=== PATIENT | female | born 1945 | race Caucasian/White ===

== ENCOUNTER → 2017-02-02 15:59 | Outpatient (CLI) | payer MEDICARE, BC ==
[2016-01-14 07:12] VITALS: BMI 38.9
[~2017-02-02 15:59] MED LIST: BAYER ASPIRIN325 MG PO; CYCLOBENZAPRINE10 MG PO; FORTAMET500 MG/BOT PO; HYDROCODONE-APA1 TAB PO; HYZAAR 100-25 T1 TAB PO; K-DUR20 MEQ PO; LASIX20 MG PO; LYRICA75 MG PO; NEURONTIN600 MG PO; NORVASC2.5 MG PO; SYNTHROID150 MCG PO; TRIMETHOPRIM100 MG PO; VOLTAREN75 MG PO; XANAX0.5 MG PO
== END | disposition home or self-care (01) ==
LOC: D.MAMMO 09:15
DX: Z12.31 Encounter for screening mammogram for malignant neoplasm of breast (principal)

== ENCOUNTER 2017-07-29 15:06 | Emergency (ER) | payer MEDICARE, BC ==
[2016-01-14 07:12] VITALS: BMI 38.9
[2017-07-29 15:40] LABS: BASOPHILS 0.5 % (0-2); EOSINOPHILS 4.9 % (0-7); HEMATOCRIT 32.7 % (36.0-48.0); IMMATURE GRANULOCYTES 0.3 % (0-5); LYMPHOCYTES 26.6 % (15-50); MCH 23.9 pg (26.0-34.0); MCHC 30.6 g/dL (31.0-37.0); MEAN PLATELET VOLUME 9.5 fL (7.4-10.4); MONOCYTES 5.7 % (2-11); PLATELET COUNT 297 10x3/uL (130-400); RBC 4.19 10x6/uL (4.00-5.40); RDW 16.2 % (11.5-14.5); WBC 6.5 10x3/uL (4.8-10.8)
[2017-07-29 15:57] LABS: ALBUMIN 3.1 g/dL (3.4-5.0); ANION GAP 14.7 mmol/L (8-16); BILIRUBIN - TOTAL 0.22 mg/dL (0.2-1.3); CALCIUM 9.1 mg/dL (8.5-10.1); CARBON DIOXIDE 23.1 mmol/L (21.0-32.0); CREATININE - SERUM 1.2 mg/dL (0.6-1.3); POTASSIUM - SERUM 4.8 mmol/L (3.5-5.1); PROTEIN - SERUM 7.6 g/dL (6.4-8.2)
== END 2017-07-29 18:38 | disposition home or self-care (01) ==
LOC: D.ER 15:06
PROVIDERS: Family Medicine
DX: E86.0 Dehydration (principal); E11.65 Type 2 diabetes mellitus with hyperglycemia

== ENCOUNTER 2017-08-06 18:36 | Emergency (ER) | payer MEDICARE, BC ==
[2016-01-14 07:12] VITALS: BMI 38.9
[2017-08-06 19:08] LABS: BASOPHILS 0.2 % (0-2); EOSINOPHILS 0.3 % (0-7); HEMATOCRIT 36.1 % (36.0-48.0); IMMATURE GRANULOCYTES 0.3 % (0-5); LYMPHOCYTES 7.3 % (15-50); MCH 23.6 pg (26.0-34.0); MCHC 30.5 g/dL (31.0-37.0); MCV 77.3 fL (80.0-100.0); MEAN PLATELET VOLUME 9.4 fL (7.4-10.4); MONOCYTES 4.5 % (2-11); NEUTROPHILS 87.4 % (40-80); PLATELET COUNT 327 10x3/uL (130-400); RBC 4.67 10x6/uL (4.00-5.40); RDW 16.7 % (11.5-14.5); WBC 11.5 10x3/uL (4.8-10.8)
== END 2017-08-06 20:25 | disposition home or self-care (01) ==
LOC: D.ER 18:36
PROVIDERS: Emergency Medicine
DX: T50.905A Adverse effect of unspecified drugs, medicaments and biological substances, initial encounter (principal); Y92.029 Unspecified place in mobile home as the place of occurrence of the external cause; R11.0 Nausea; E11.9 Type 2 diabetes mellitus without complications; I10 Essential (primary) hypertension

== ENCOUNTER 2017-08-07 07:51 | Inpatient (IN) | payer MEDICARE, BC ==
[2017-08-07 08:56] LABS: ALBUMIN 3.1 g/dL (3.4-5.0); ALKALINE PHOSPHATASE 170 U/L (46-116); ALT (SGPT) 15 U/L (10-68); BILIRUBIN - TOTAL 0.52 mg/dL (0.2-1.3); CALC OSMOLALITY 298 mosm/kg (275-300); CALCIUM 8.7 mg/dL (8.5-10.1); CARBON DIOXIDE 22.2 mmol/L (21.0-32.0); CHLORIDE - SERUM 101 mmol/L (98-107); CREATININE - SERUM 1.5 mg/dL (0.6-1.3); POTASSIUM - SERUM 4.4 mmol/L (3.5-5.1); PROTEIN - SERUM 7.4 g/dL (6.4-8.2); SODIUM 137 mmol/L (136-145); UREA NITROGEN 46 mg/dL (7-18); eGFR NON AFRICAN AMERICAN 36 mL/min (90-120)
[2017-08-07 08:57] LABS: GLUCOSE 329 mg/dL (74-106)
[2017-08-07 08:59] LABS: CKMB 0.6 U/L (0.0-3.6); CREATINE KINASE 49 UL (21-215); MAGNESIUM - SERUM 1.2 mg/dL (1.8-2.4)
[2017-08-07 09:02] LABS: TROPONIN-I < 0.017 ng/mL (0.000-0.060)
[2017-08-07 14:23] VITALS: BP 131/59; BMI 36.8
[2017-08-07 15:17] LABS: HEMOGLOBIN 11.2 g/dL (12-16); MCH 23.5 pg (26.0-34.0); MCHC 30.3 g/dL (31.0-37.0); MCV 77.6 fL (80.0-100.0); MEAN PLATELET VOLUME 9.5 fL (7.4-10.4); PLATELET COUNT 278 10x3/uL (130-400); RBC 4.77 10x6/uL (4.00-5.40); RDW 17.3 % (11.5-14.5); WBC 22.9 10x3/uL (4.8-10.8)
[2017-08-07 15:41] LABS: BASOPHILS 3 % (0-2); LYMPHOCYTES 89 % (15-50); MONOCYTES 8 % (2-11); PLATELET ESTIMATE NORMAL
--- NOTE | 2017-08-07 19:31 | NUR ---
PT RESTING QUIETLY WITH EYES CLOSED. DENIES ANY NEEDS AT THIS TIME. CALL LIGHT IN REACH, WILL CONTINUE TO MONITOR.
[2017-08-07 20:00] VITALS: BP 132/57
--- NOTE | 2017-08-07 21:48 | NUR ---
ASSESSMENT COMPLETED AT THIS TIME PER FLOWSHEET. BS 217 4 UNITS HUMULIN R ADMINISTERED. IV LEFT FOREARM PATENT NS @ 100. DENIES ANY OTHER NEEDS AT THIS TIME. CALL LIGHT IN REACH, SRX2 BED LOW. WILL CONTINUE TO MONITOR.
[2017-08-08] VITALS (7 sets, daily range): BP systolic 97–140; BP diastolic 50–66; BMI 36.8
--- NOTE | 2017-08-08 02:00 | NUR ---
ASSISTED PT TO CHAIR X2 ASSIST. STATED THE BED HURTS HER BACK. CALL LIGHT IN REACH.
[2017-08-08 05:41] LABS: ANION GAP 16.4 mmol/L (8-16); CALCIUM 7.5 mg/dL (8.5-10.1); CARBON DIOXIDE 20.8 mmol/L (21.0-32.0); CREATININE - SERUM 1.5 mg/dL (0.6-1.3); POTASSIUM - SERUM 4.2 mmol/L (3.5-5.1)
--- NOTE | 2017-08-08 06:20 | NUR ---
BS 228 4 UNITS HUMULIN R ADMINISTERED PER SS.
--- NOTE | 2017-08-08 07:00 | NUR ---
REPORT RECEIVED FROM AUDIT MANAGER NURSE. CALL LIGHT IN REACH.
--- NOTE | 2017-08-08 07:10 | NUR ---
PLACED PT ON 2L NC DUE TO DESATURATION SP02 OF 84 PT CURRENTLY 93%
--- NOTE | 2017-08-08 07:56 | NUR ---
PATIENT IN BED WITH EYES OPEN AT THIS TIME. NO COMPLAINTS OR SIGNS OF DISTRESS. DENIES ANY NEEDS AT THIS TIME. IV INTACT. CALL LIGHT WITHIN REACH;.
--- NOTE | 2017-08-08 08:34 | NUR ---
ASSESSMENT COMPLETED. ASSISTED TO SIDE OF BED SO SHE CAN EAT. CALL LIGHT IN REACH. WILL CONTINUE WITH PLAN OF CARE.
[2017-08-08 09:11] LABS: BASOPHILS 0.1 % (0-2); EOSINOPHILS 0.4 % (0-7); HEMATOCRIT 37.2 % (36.0-48.0); HEMOGLOBIN 11.4 g/dL (12-16); IMMATURE GRANULOCYTES 0.5 % (0-5); LYMPHOCYTES 6.3 % (15-50); MCH 23.8 pg (26.0-34.0); MCHC 30.6 g/dL (31.0-37.0); MCV 77.5 fL (80.0-100.0); MEAN PLATELET VOLUME 10.7 fL (7.4-10.4); NEUTROPHILS 84.7 % (40-80); PLATELET COUNT 341 10x3/uL (130-400); RDW 17.3 % (11.5-14.5); WBC 25.6 10x3/uL (4.8-10.8)
--- NOTE | 2017-08-08 10:08 | NUR ---
FERROUS SULFATE PO. RADIOLOGY WAITING TO DO XRAY.
[2017-08-08] MEDS ORDERED: HYDROCODONE-APA1 TAB PO (10:32)
--- NOTE | 2017-08-08 10:34 | NUR ---
WOUND CARE NURSE STATED PATIENT IS HURTING D/T BILATERAL LOWER EXTREMITIES DRSG CHANGES. SPOKE WITH PATIENT AND SHE IS WANTING HER HOME MED OF NROCO WHICH WAS NOT ON HER MED LIST. WILL SPEAK WITH VEDA BUTCHER.
--- NOTE | 2017-08-08 10:45 | NUR ---
Wound care consult: Pt has numerous chronic open wounds on bilateral lower extremities. She is a pt at the [facility] wound clinic and sees Dr. Navarro. Home health comes to home for dressing changes daily. Right lateral calf: 2.3cm x 2.5cm x 0.3cm Wound bed is pale pink with stringy yellow slough. There is a small amount of serous drainage noted without odor. Left medial doshi: 2.5cm x 6cm x 0.2cm Pale pink wound bed with stringy yellow slough. Small serous drainage without odor. Left upper doshi: 3.5cm x 1.5cm x 0.1cm Pale pink wound bed with stringy yellow slough. Small serous drainage without odor. Left lower doshi: 2.5cm x 3cm x 0.2cm Pale pink wound bed with stringy yellow slough. Drainage is small and serous without odor. Left lateral doshi: 5.5cm x 2cm x 0.2cm Stringy yellow slough coveres a pale pink wound bed. There is a small amount of serous drainage and no odor. Left dorsal foot: 2.5cm x 2.5cm x 0.5cm pale pink wound bed. Small amount of serous drainage with no odor. Pt states that she gets these wounds frequently. Starting with blisters and turning into wounds. Bilateral lower extremities are very edematous at this time. She also complains of extreme tenderness at wound sites. Currernt treatment being used by /[facility] wound clinic is Medihoney to wounds on lower legs and Dakin's 1/4 strength solution to wound on left foot (loosely packed with 1/4" plain packing strip. All are covered with Adaptic, 4x4s, wrapped with cast padding, kerlix and secured with stocking. They are changed daily. I recommend continuing with the above wound care treatment. Will continue to monitor.
--- NOTE | 2017-08-08 11:22 | NUR ---
MORPHINE 2 MG SIVP PER C/O PAIN OF 8. PLEXI-PULSES BOOTS WERE PLACED BY MARKIE @ 1115. I ALSO PUT HEART MONITOR ON, HR [address] CALDERON IN ROOM TO EXAMINE PATIENT AT THIS TIME.
--- NOTE | 2017-08-08 11:39 | NUR ---
PLEXI PULSE BOOTS ON
[2017-08-08 11:54] LABS: CKMB 0.1 U/L (0.0-3.6); CREATINE KINASE 34 UL (21-215); PRO BNP 427 pg/mL (0-125)
[2017-08-08 11:55] LABS: TROPONIN-I < 0.017 ng/mL (0.000-0.060)
--- NOTE | 2017-08-08 13:14 | NUR ---
ASSISTED TO BSC. CLEAN CATCH URINE OBTAINED. SENT TO LAB.
--- NOTE | 2017-08-08 14:05 | NUR ---
IV LEVAQUIN INITIATED SINCE ALL SPECIMENS HAVE BEEN COLLECTED.
[2017-08-08 14:20] LABS: APPEARANCE HAZY (CLEAR); BILIRUBIN NEGATIVE (NEGATIVE); COLOR YELLOW (YELLOW); KETONE NEGATIVE (NEGATIVE); NITRITE NEGATIVE (NEGATIVE); PROTEIN NEGATIVE (NEGATIVE); UROBILINOGEN NORMAL (NORMAL)
[2017-08-08 14:21] LABS: BACTERIA MANY /hpf (NONE SEEN); GLUCOSE 100 mg/dL (NEGATIVE); MUCUS <1+ /lpf (NONE SEEN); RED CELLS - URINE 0-5 /hpf (0-5); WHITE CELLS - URINE >50 /hpf (0-5)
--- NOTE | 2017-08-08 15:07 | NUR ---
C/O PAIN OF 7. MORPHINE 2 MG SIVP. DAUGHTER AND GRANDSON AT BEDSIDE. CALL LIGHT IN REACH.
--- NOTE | 2017-08-08 17:24 | NUR ---
8 UNITS OF INSULIN FOR BS OF 234. CALL LIGHT IN REACH.
--- NOTE | 2017-08-08 18:43 | NUR ---
2 MG MORPHINE SIVP PER C/O PAIN OF 8. NO OTHER CHANGES IN INITIAL ASSESSMENT. CALL LIGHT IN REACH. PLEXI-PULSES TO BLE. BED ALARM ON. VISITOR IN ROOM. CALL LIGHT IN REACH. WILL CONTINUE WITH PLAN OF CARE.
--- NOTE | 2017-08-08 19:25 | NUR ---
RECEIVED REPORT, ASSUMED CARE OF PT. REPORTS PAIN 8/10 IN BACK. PLEXI PULSE PADS IN USE. IV LEFT FOREARM NS @ 100. BED ALARM ON, ENCOURAGED PT TO USE CALL LIGHT FOR ASSISSTANCE. BED IN LOWEST POSITION. PT DENIES ANY OTHER NEEDS AT THIS TIME. WILL CONTINUE TO MONITOR.
[2017-08-08 19:33] LABS: CREATINE KINASE 32 UL (21-215)
[2017-08-08 19:48] LABS: TROPONIN-I 0.078 ng/mL (0.000-0.060)
--- NOTE | 2017-08-08 21:20 | NUR ---
BS 171 4 UNITS HUMULIN R ADMINISTERED AT THIS TIME PER SS.
[2017-08-09 00:10] LABS: CREATINE KINASE 62 UL (21-215)
[2017-08-09 00:12] LABS: TROPONIN-I 0.086 ng/mL (0.000-0.060)
--- NOTE | 2017-08-09 01:34 | NUR ---
PRN MORPHINE ADMINISTERED AT THIS TIME FOR PAIN 05/19. PT STATES THE PAIN IS COMING FROM HER LEGS, STATES "THEY HAVE NEVER HURT THIS BAD BEFORE." CALL LIGHT IN REACH.
[2017-08-09 04:00] VITALS: BP 103/57
[2017-08-09 05:39] LABS: BASOPHILS 0.1 % (0-2); EOSINOPHILS 0.8 % (0-7); HEMATOCRIT 31.3 % (36.0-48.0); HEMOGLOBIN 9.6 g/dL (12-16); IMMATURE GRANULOCYTES 0.3 % (0-5); LYMPHOCYTES 8.1 % (15-50); MCH 23.6 pg (26.0-34.0); MCHC 30.7 g/dL (31.0-37.0); MCV 77.1 fL (80.0-100.0); MEAN PLATELET VOLUME 9.4 fL (7.4-10.4); MONOCYTES 9.2 % (2-11); NEUTROPHILS 81.5 % (40-80); RBC 4.06 10x6/uL (4.00-5.40); RDW 17.2 % (11.5-14.5)
[2017-08-09 05:42] LABS: PLATELET COUNT 213 10x3/uL (130-400); WBC 18.5 10x3/uL (4.8-10.8)
[2017-08-09 05:57] LABS: ANION GAP 15.4 mmol/L (8-16); BILIRUBIN - TOTAL 0.56 mg/dL (0.2-1.3); CALCIUM 7.6 mg/dL (8.5-10.1); CARBON DIOXIDE 19.2 mmol/L (21.0-32.0); CREATININE - SERUM 1.3 mg/dL (0.6-1.3); POTASSIUM - SERUM 3.6 mmol/L (3.5-5.1)
[2017-08-09 05:58] LABS: ALBUMIN 1.9 g/dL (3.4-5.0); PROTEIN - SERUM 5.2 g/dL (6.4-8.2)
--- NOTE | 2017-08-09 07:50 | NUR ---
REPORT RECEIVED FROM SUPERVISOR POWDER AND PRIMER CANNING NURSE. CALL LIGHT IN REACH.
--- NOTE | 2017-08-09 08:00 | NUR ---
ASSESSMENT COMPLETED. PLEXI-PULSES APPLIED BACK TO BLE. BED ALARM CUT ON. CALL LIGHT IN REACH. WILL CONTINUE WITH PLAN OF CARE.
[2017-08-09 09:05] VITALS: BP 82/47
--- NOTE | 2017-08-09 10:30 | NUR ---
AM MEDS ADMINISTERED. NS 500 CC IV BOLUS INITIATED. [place] HAT PLACED IN BR FOR MEASUREMENT OF URINE AND ALSO FOR STOOL SAMPLE TO SEND TO LAB. SPECIMEN CUP AND HAZARDOUS BAG PLACED ON DOOR TO COLLECT STOOL SAMPLE FOR OCCULT BLOOD. WANTS TO WAIT RIGHT BEFORE DRESSING CHANGES TO GET MORPHINE. AT BEDSIDE. CALL LIGHT IN REACH.
--- NOTE | 2017-08-09 10:30 | NUR ---
AM MEDS ADMINISTERED. NS 500 CC IV BOLUS INITIATED. [place] HAT PLACED IN BR FOR MEASUREMENT OF URINE AND ALSO FOR STOOL SAMPLE TO SEND TO LAB. SPECIMEN CUP AND HAZARDOUS BAG PLACED ON DOOR TO COLLECT STOOL SAMPLE FOR OCCULT BLOOD. AT BEDSIDE. CALL LIGHT IN REACH.
[2017-08-09 11:35] VITALS: BP 106/58
--- NOTE | 2017-08-09 11:38 | NUR ---
BOLUS COMPLETED. IV TO LEFT FOREARM WITH SWELLING AND REDNESS. DC'D WITH TIP INTACT. RESITED TO RIGHT HAND WITH 22 GA X1 STICK. FSBS 256. REGULAR INSULIN 10 UNITS SUBQ TO RLQ ABD. FAMILY IN ROOM. CALL LIGHT IN REACH.
--- NOTE | 2017-08-09 15:29 | NUR ---
PATRICK CALVO PO. MORPHINE IVPB. CALL LIGHT IN REACH.
[2017-08-09 16:12] VITALS: BP 123/58
--- NOTE | 2017-08-09 16:15 | NUR ---
DRSGs TO BLE CHANGED PER ORDER.
--- NOTE | 2017-08-09 16:42 | EC ---
PATIENT:TAMIKA MERINO DATE OF SERVICE: 08/08/17 SEX: F MEDICAL RECORD: [id number] DATE OF : [birth year] LOCATION:D.MS [id number] AGE OF PATIENT: 72 ADMISSION DATE: 08/08/17 REFERRING PHYSICIAN: INTERPRETING PHYSICIAN: RAJI ROSEN MD ECHOCARDIOGRAM REPORT ECHO CHARGES 4 ECHO COMPLETE CLINICAL DIAGNOSIS: CP/SOB ECHOCARDIOGRAPHIC MEASUREMENTS (adult normal given) AC root (d.<3.7cm) 3.4 cm LV Septum d (<1.2 cm> 1.8 cm Valve Excursion 1.2 cm LV Septum (systole) 2.5 cm Left Atria (s.<4.0cm> 3.9 cm LVPW d(<1.2cm) 1.7 cm RV (d.<2.3cm) 2.4 cm LVPW (sytole) 2.5 cm LV diastole(<5.6CM) 5.6 cm MV E-F(>70mm/sec) cm LV systole 2.5 cm LVOT Diameter 1.8 cm MV exc.(>10mm) cm Est.ejection fraction (50-75%) % Pericardial Effusion N DOPPLER: LVIT cm/sec A 74.0 cm/sec E 60.0 cm/sec LA cm/sec RVSP 78.0 mmHg LVOT 194 cm/sec AOP1/2T m/s Asc. 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 Rosen TAPE# PACS DATE OF SERVICE: 08/08/2017 Echocardiogram FINDINGS: 1. Left ventricular chamber size is upper limits of normal, left ventricular systolic function is mildly depressed. Overall ejection fraction 40% to 45%. 2. Left atrium is within normal limits at 3.9 cm. Right atrium and right ventricular chamber sizes are mildly dilated. 3. Valvular structures: Aortic valve demonstrates mild calcific aortic ECHOCARDIOGRAM REPORT [id number] TAMIKA MERINO stenosis. There is a gradient of 25 mm across the valve. The valve area calculates 1.9 cm-squared. The remaining valvular structures have normal structure and motion. 4. Doppler interrogation reveals [id number] mitral regurgitation, mild tricuspid regurgitation, no other valvular insufficiency or stenosis. Pulmonary systolic pressure; however, is markedly elevated estimated at 78 mmHg. 5. No evidence of pericardial effusion or left ventricular thrombus. TRANSINT:[id number] Voice Confirmation ID: [id number] DOCUMENT ID: [id number] RAJI ROSEN MD at 1642 CC: [id number] DICTATION DATE: 08/09/17 1022 SYSTEMS TEST ENGINEER: 08/09/17 1128 ADM IN [facility] [address] [place] [address]
--- NOTE | 2017-08-09 16:42 | CN ---
PATIENT NAME:TAMIKA MERINO MEDICAL RECORD: [id number] : 47 LOCATION:D D.[id number] ADMIT DATE: 08/08/17 ACCOUNT: [id number] CONSULTING PHYSICIAN: RAJI CALDERON MD REFERRING PHYSICIAN: ANNA BAZAN MD DATE OF CONSULTATION: 08/08/2017 ADMITTING DIAGNOSES: 1. Chest pain. 2. Elevated WBC count. 3. Febrile illness. HISTORY OF PRESENT ILLNESS: Ms. Merino presents with chest pain since last in a worsening fashion. She as well has been febrile. She has had a cough. She has had nausea, no vomiting, but her chest pain does persist. She has sinus tachycardia on her EKG, but no ST-T changes. She has no history of ischemic heart disease. Troponin is normal. She is tachycardic to the 110 range, sinus tachycardia. Her blood pressure is low, around 100 systolic. White blood cell count is elevated at 25.6. PHYSICAL EXAMINATION: GENERAL APPEARANCE: Well-nourished, well-developed, appears stated age. Level of distress, comfortable. PSYCHIATRIC: Mental status, alert, normal affect. Orientation, oriented to time, place and person. EYES: Lids and conjunctiva, noninjected. No discharge, no pallor. ENT: Lips, teeth, gums, normal dentition. Oropharynx, no cyanosis, no pallor. NECK: Carotid arteries, bilateral normal upstroke, no bruits, no thrills. JUGULAR VEINS: No jugular venous pressure or distention. CERVICAL LYMPH NODES: Nontender, nonenlarged. THYROID: Not enlarged. Nontender. No nodules. LUNGS: Respiratory effort, unlabored. CHEST: Normal curvature. No thoracic deformity. No chest wall tenderness. Percussion, resonant. Auscultation, clear. No wheezes, no rales, no rhonchi. CARDIOVASCULAR: Precordial exam, nondisplaced. No heaves or pericardial thrills. Rate and rhythm, regular. Heart sounds, normal S1, normal S2. No S3, no gallop, no rub. Systolic murmur, not heard. Diastolic murmur, not heard. EXTREMITIES: No cyanosis, no edema. Peripheral pulses, full and equal in all extremities, except as noted. No bruits appreciated. ABDOMEN: Soft, nondistended. Normal aorta. No bruit. Nontender. No masses. Liver, nontender, no hepatomegaly. Spleen, nontender, no splenomegaly. MUSCULOSKELETAL: No joint tenderness. No joint swelling. No erythema. NEUROLOGICAL: Normal gait, normal strength, normal tone. SKIN: Warm and dry. REVIEW OF SYSTEMS: The patient reports easy bruising but reports no swollen glands. The patient reports no fever, no night sweats, no significant weight gain, no significant weight loss. No significant exercise tolerance. The patient reports no dry eyes, no irritation, no vision change. Patient reports no difficulty hearing and no ear pain. Patient reports no frequent nose bleeds or nose and sinus problems. Patient reports on arm pain on exertion. No shortness of breath while lying down. No history of heart murmur. Patient reports no cough, no wheezing or coughing up blood. Patient reports no abdominal pain, no vomiting. Normal appetite. No diarrhea and not vomiting blood. No nausea and no constipation. Patient reports no incontinence. No CONSULT REPORT [id number] TAMIKA MERINO difficulty urinating. No hematuria. No increased frequency. Patient reports no muscle aches. No weakness, no arthralgias, no back pain. No swelling of the extremities. Patient reports no abnormal mole, no jaundice, no rashes. Reports no loss of consciousness. No weakness and no numbness. No seizures, dizziness, or headaches. The patient reports no depression, no sleep disturbance, feeling safe in a relationship and no alcohol abuse. Patient reports on fatigue. Reports no runny nose or sinus pressure. No itching, no hives, and no frequent sneezing. OVERALL IMPRESSION: Chest pain of unknown etiology, doubt cardiac most likely secondary to a febrile illness and/or pneumonia. She is undergoing workup for that at this time as well. I would not proceed with coronary angiography at this time. Despite a negative workup or treatment of the febrile illness if the chest pain persists, then would consider cardiac workup. TRANSINT:[id number] Voice Confirmation ID: [id number] DOCUMENT ID: [id number] RAJI CALDERON MD at 1642 CC: [id number] DICTATION DATE: 08/08/17 1144 MID WIFE: 08/08/17 1231 ADM IN [facility] [id number] [place] [id number]
--- NOTE | 2017-08-09 18:45 | NUR ---
ANOTHER 2 MG MORPHINE SIVP. NO OTHER CHANGES IN INITIAL ASSESSMENT. PLEXI-PULSES TO BLE. BED ALARM ON. CALL LIGHT IN REACH. WILL CONTINUE WITH PLAN OF CARE.
--- NOTE | 2017-08-09 21:04 | NUR ---
AWAKE,ALERT.WATCHING TV. NO COMPLAINTS AT PRESENT. IV INFUSING TO RIGHT THUMB WIHTOUT REDNESS OR EDEMA NOTED. O2 @ 3L PER NC ON. NO DISTRESS NOTED. CL IN REACH.
[2017-08-09 21:30] VITALS: BP 125/63
[2017-08-10] VITALS (7 sets, daily range): BP systolic 121–154; BP diastolic 47–92
--- NOTE | 2017-08-10 01:12 | NUR ---
RESTING QUIELTY. RESP EVEN AND UNLORED.CL IN REACH.
--- NOTE | 2017-08-10 02:00 | NUR ---
ASSISTED PATIENT TO THE BEDSIDE COMMODE. PATIENT IS VERY WEAK, REQUIRED A LOT OF ASSISTANCE. PATIENT'S NURSE, LISA, ASSISTED PATIENT BACK TO BED.
[2017-08-10 05:11] LABS: BASOPHILS 0.2 % (0-2); EOSINOPHILS 2.6 % (0-7); HEMATOCRIT 29.7 % (36.0-48.0); HEMOGLOBIN 9.2 g/dL (12-16); IMMATURE GRANULOCYTES 0.6 % (0-5); LYMPHOCYTES 8.5 % (15-50); MCH 23.7 pg (26.0-34.0); MCV 76.5 fL (80.0-100.0); MEAN PLATELET VOLUME 10.1 fL (7.4-10.4); MONOCYTES 12.2 % (2-11); NEUTROPHILS 75.9 % (40-80); PLATELET COUNT 218 10x3/uL (130-400); RBC 3.88 10x6/uL (4.00-5.40); RDW 17.3 % (11.5-14.5); WBC 14.5 10x3/uL (4.8-10.8)
[2017-08-10 05:41] LABS: ALBUMIN 2.1 g/dL (3.4-5.0); ANION GAP 16.5 mmol/L (8-16); BILIRUBIN - TOTAL 0.43 mg/dL (0.2-1.3); CALCIUM 7.8 mg/dL (8.5-10.1); CARBON DIOXIDE 18.2 mmol/L (21.0-32.0); POTASSIUM - SERUM 3.7 mmol/L (3.5-5.1); PROTEIN - SERUM 5.3 g/dL (6.4-8.2)
[2017-08-10 05:42] LABS: CREATININE - SERUM 0.9 mg/dL (0.6-1.3)
--- NOTE | 2017-08-10 06:21 | NUR ---
AWAKE WITH NO COMPLAINTS. CL IN REACH.
--- NOTE | 2017-08-10 07:35 | NUR ---
PT AOX4 RESP EVEN AND NONLABORED PT DENIES NEEDS AT THIS TIME IV TO RIGHT THUMB PATENT AND INTACT AT THIS TIME SRX2 BED AT LOWEST SETTING CALL LIGHT WITHIN REACH WILL CONTINUE TO MONITOR
--- NOTE | 2017-08-10 07:44 | NUR ---
Patient Name: TAMIKA MERINO Admission Status: ER Accout number: [id number] Admission Date: 08-08-2017 : 1945 Admission Diagnosis: Attending: ANNA BAZAN Current LOS: 2 Anticipated DC Date: 08-12-2017 Planned Disposition: Home Primary Insurance: MEDICARE A & B Discharge Planning Comments: CM MET WITH PATIENT REGARDING D/C NEEDS AND PLANS. PATIENT STATED SHE LIVES WITH HER FRIEND (RASHID SHUKLA) AND HE WILL DRIVE HER HOME AT DISCHARGE. PATIENT STATED SHE HAS A RAMP TO ENTER HOME AND NO STAIRS INSIDE. PATIENTS PCP IS THE [facility] AND SHE SEES LUCRECIA MURRAY. PATIENTS PHARMACY IS [facility]. PATIENT IS CURRENT WITH [facility]. CM WILL CONTINUE TO FOLLOW PATIENT WITH D/C NEEDS AND PLANS. PCP [facility]A [facility] (SEES VEDA MURRAY) [facility]- [phone] RASHID SHUKLA (FRIEND AND ROOMMATE) [phone] Manufacturing Advisor: Yuridia Cuevas Is the patient Alert and Oriented? Yes 0 * How many steps to enter\exit or inside your home? RAMP 0 * PCP [facility] MURRAY APN ([facility]) 0 * Pharmacy [facility] 0 * Preadmission Environment Home with Family 0 * ADLs Independent 0 * Equipment Glucometer Shower Chair Walker 0 * List name and contact numbers for known caregivers / representatives who currently or will assist patient after discharge: RASHID SHUKLA (FRIEND AND ROOMMATE) [phone] 0 * Community resources currently utilized Home Health 0 * Please name any agencies selected above. [facility] 0 * Additional services required to return to the preadmission environment? Yes 0 * Can the patient safely return to the preadmission environment? Yes 0 * Has this patient been hospitalized within the prior 30 days at any hospital? No 0 Grand Total: 0
--- NOTE | 2017-08-10 12:50 | NUR ---
NUTRITION F/U PT VISIT. PT TOLERATING ADA DIET, REPORTS IMPROVING PO INTAKE. CURRENTLY ~ 50% INTAKE RECENT MEALS. WILL CONTINUE TO PROVIDE DIET, MONITOR INTAKE. RD FOLLOWING
--- NOTE | 2017-08-10 19:30 | NUR ---
PT ALERT AND ORIENTED. STATES PAIN 04/18. IV RIGHT THUMB NS @ 100. PT C/O IV POSITION, REQUESTED IF IT COULD BE MOVED BECAUSE THE PUMP HAD WENT OFF ALL DAY. WILL ATTEMPT NEW IV SITE. CALL LIGHT IN REACH.
--- NOTE | 2017-08-10 20:55 | NUR ---
PRN MORPHINE ADMINISTERED AT THIS TIME FOR PAIN.
--- NOTE | 2017-08-10 21:06 | NUR ---
BS 166 ADMINISTERED 4 UNITS HUMULIN R PER SS.
[2017-08-11] VITALS (8 sets, daily range): BP systolic 107–179; BP diastolic 50–81
[2017-08-11 05:12] LABS: BASOPHILS 0.2 % (0-2); HEMATOCRIT 30.7 % (36.0-48.0); HEMOGLOBIN 9.5 g/dL (12-16); IMMATURE GRANULOCYTES 0.5 % (0-5); LYMPHOCYTES 11.9 % (15-50); MCH 23.5 pg (26.0-34.0); MCHC 30.9 g/dL (31.0-37.0); MEAN PLATELET VOLUME 10.5 fL (7.4-10.4); MONOCYTES 11.7 % (2-11); NEUTROPHILS 72.7 % (40-80); RBC 4.04 10x6/uL (4.00-5.40); RDW 17.2 % (11.5-14.5); WBC 12.9 10x3/uL (4.8-10.8)
[2017-08-11 05:38] LABS: PLATELET COUNT 264 10x3/uL (130-400)
--- NOTE | 2017-08-11 05:45 | NUR ---
IV IN RIGHT THUMB INFILTRATED, DC'D WITH CATH TIP INTACT. 22G RESITED IN LEFT WRIST PER VIVIANE MELO.
[2017-08-11 05:57] LABS: ALBUMIN 2.2 g/dL (3.4-5.0); ALKALINE PHOSPHATASE 153 U/L (46-116); ALT (SGPT) 16 U/L (10-68); BILIRUBIN - TOTAL 0.35 mg/dL (0.2-1.3); CALC OSMOLALITY 279 mosm/kg (275-300); CALCIUM 7.4 mg/dL (8.5-10.1); CARBON DIOXIDE 17.8 mmol/L (21.0-32.0); CHLORIDE - SERUM 104 mmol/L (98-107); CREATININE - SERUM 0.8 mg/dL (0.6-1.3); GLUCOSE 179 mg/dL (74-106); POTASSIUM - SERUM 3.5 mmol/L (3.5-5.1); PROTEIN - SERUM 5.7 g/dL (6.4-8.2); SODIUM 137 mmol/L (136-145); eGFR NON AFRICAN AMERICAN 75 mL/min (90-120)
[2017-08-11 06:03] LABS: UREA NITROGEN 19 mg/dL (7-18)
--- NOTE | 2017-08-11 06:15 | NUR ---
PRN MORPHINE ADMINISTERED AT THIS TIME FOR PAIN 05/19
--- NOTE | 2017-08-11 07:30 | NUR ---
ASSESSMENT PER FLOW SHEET.PT WITHOUT DISTRESS.REDNESS NOTED TO ABDOMINAL FOLDS AND GROINS. DRESSINGS TO BLE IN PLACE.PT STATES SHE HAS HAD ULCERS FOR [address] F[address] PRVENTION IN PLACE.
--- NOTE | 2017-08-11 11:49 | NUR ---
IV RED AND LEAKING AFTER SHOWER.IV DC FROM LEFT FOREARM WITH CATH TIP INTACT.IV RESITED TO LEFT HAND X1 STICK USING ASEPTIC TECH 22G. PT TOLERATED WELL
--- NOTE | 2017-08-11 15:44 | NUR ---
Rehab Note- Acute Rehab Prescreen order received. The patient has not been seen by Physical therapy since 08/08. Spoke with APOLINAR Shi. Will follow at this time to see the patient's functional mobility. Thank you for this referral! Nena Chin RN Clinical Liaison, [facility] Rehab
--- NOTE | 2017-08-11 18:13 | NUR ---
REMAINS WITHOUT NEEDS,WITHOUT CHANGE FROM INITIAL ASSESSMENT.CONT PLAN OF CARE
--- NOTE | 2017-08-11 19:00 | NUR ---
REPORT RECEIVED AND CARE OF PT ASSUMED. PT SITTING UP IN BED WATCHING TV. IV IN LEFT WRIST SALINE LOCKED. TELEMETRY IN PLACE AND READING 114 ST AT THIS ASSESSMENT. WILL MONITOR CLOSELY FOR NEEDS.
--- NOTE | 2017-08-11 20:47 | NUR ---
HS MEDICATIONS GIVEN. FSBS 202 THIS CHECK REQUIRING COVERAGE WITH 8 UNITS OF REGULAR INSULIN. WILL CONTINUE TO MONITOR FOR NEEDS.
--- NOTE | 2017-08-11 23:35 | NUR ---
ASSISTED PT UP TO USE BSC TO VOIDE.POSITONED BACK IN BED FOR COMFORT. WILL CONTINUE TO MONITOR FOR NEEDS.
[2017-08-12] VITALS: BP 128/62
[2017-08-12 04:00] VITALS: BP 148/73
[2017-08-12 05:19] LABS: BASOPHILS 0.1 % (0-2); EOSINOPHILS 3.4 % (0-7); HEMATOCRIT 27.1 % (36.0-48.0); HEMOGLOBIN 8.4 g/dL (12-16); IMMATURE GRANULOCYTES 0.7 % (0-5); LYMPHOCYTES 15.4 % (15-50); MCH 23.5 pg (26.0-34.0); MCV 75.9 fL (80.0-100.0); MEAN PLATELET VOLUME 10.1 fL (7.4-10.4); MONOCYTES 12.3 % (2-11); NEUTROPHILS 68.1 % (40-80); PLATELET COUNT 232 10x3/uL (130-400); RBC 3.57 10x6/uL (4.00-5.40); RDW 17.1 % (11.5-14.5); WBC 10.5 10x3/uL (4.8-10.8)
[2017-08-12 05:37] LABS: ALBUMIN 1.9 g/dL (3.4-5.0); ALKALINE PHOSPHATASE 134 U/L (46-116); ALT (SGPT) 17 U/L (10-68); BILIRUBIN - TOTAL 0.31 mg/dL (0.2-1.3); CALC OSMOLALITY 279 mosm/kg (275-300); CALCIUM 7.9 mg/dL (8.5-10.1); CARBON DIOXIDE 21.5 mmol/L (21.0-32.0); CHLORIDE - SERUM 107 mmol/L (98-107); CREATININE - SERUM 0.7 mg/dL (0.6-1.3); GLUCOSE 210 mg/dL (74-106); POTASSIUM - SERUM 3.7 mmol/L (3.5-5.1); PROTEIN - SERUM 5.3 g/dL (6.4-8.2); SODIUM 137 mmol/L (136-145); eGFR NON AFRICAN AMERICAN 87 mL/min (90-120)
[2017-08-12 05:38] LABS: UREA NITROGEN 13 mg/dL (7-18)
[2017-08-12 08:00] VITALS: BP 133/52
[2017-08-12] MEDS ORDERED: IPRAT-ALBUT 0.5-3 ML UPD (11:35)
[2017-08-12] MEDS ORDERED: Levaquin PREMIX IV (11:35)
[2017-08-12] MEDS ORDERED: DIFLUCAN100 MG PO (11:35)
[2017-08-12] MEDS ORDERED: FERROUS SULFAT325 MG PO (11:35)
[2017-08-12] MEDS ORDERED: MUCINEX600 MG PO (11:37)
[2017-08-12] MEDS ORDERED: NYSTATIN1 PWD TOPICAL (11:37)
[2017-08-12] MEDS ORDERED: TESSALON PERLE100 MG PO (11:37)
[2017-08-12] MEDS ORDERED: DAKIN'S 0.125%480 M1 TOPICAL (11:37)
[2017-08-12] MEDS ORDERED: HUMULIN R100 U/ML SC (11:37)
[2017-08-12] MEDS ORDERED: FLORAJEN3 CAPS460 MG PO (11:37)
--- NOTE | 2017-08-12 11:47 | NUR ---
CM REASSESSMENT NOTE: PATIENT IS DISCHARGING TO IP REHAB TODAY/IMM SERVED
--- NOTE | 2017-08-12 12:28 | NUR ---
CM REASSESSMENT NOTE: PATIENT IS DISCHARGING TO IP REHAB TODAY/IMM SERVED
[2017-08-12 12:29] VITALS: BP 121/49
--- NOTE | 2017-08-12 14:32 | NUR ---
PT REFUSED TX STATED" IM GOING TO GO TO REHAB SOON I'LL JUST WAIT"
--- NOTE | 2017-08-12 18:16 | NUR ---
REPORT CALLED TO JAVON IN REHAB. DISCHARGE INSTRUCTIONS GIVEN TO PT, VERBALIZED UNDERSTANDING AND SIGNED.
--- NOTE | 2017-08-12 18:45 | NUR ---
PT TRANSFERRED TO ICU, PERSONAL BELONGINGS WITH PT. FAMILY AT BEDSIDE.
== END 2017-08-12 18:54 | DRG 811 ==
LOC: D.ER 07:51 → D.MS 12:33 → OBSVTIME 12:33 → D.MS 08-08 15:22
PROVIDERS: Emergency Medicine; Family Medicine; ADMIT Family Medicine
DX: D50.9 Iron deficiency anemia, unspecified (principal); J18.1 Lobar pneumonia, unspecified organism; N39.0 Urinary tract infection, site not specified; N17.9 Acute kidney failure, unspecified; R07.9 Chest pain, unspecified; E83.42 Hypomagnesemia; E86.0 Dehydration; G89.29 Other chronic pain; I10 Essential (primary) hypertension; R53.1 Weakness; Z99.81 Dependence on supplemental oxygen; E11.65 Type 2 diabetes mellitus with hyperglycemia; I95.9 Hypotension, unspecified

== ENCOUNTER 2017-08-12 19:35 | Inpatient (IN) | payer MEDICARE, BC ==
[~2017-08-12] VITALS: Ht 167.6 cm; Wt 107.2 kg
--- NOTE | 2017-08-12 19:00 | NUR ---
INTRODUCED MYSELF TO PATIENT AND FAMILY MEMBER. INFORMED HER I WILL BE HER NURSE AND WILL BE WORKING ON HER ADMISSION MEDICATIONS IMMEDIATELY, AND WILL RETURN LATER TO PERFORM HER ADMISSION ASSESSMENT. SAYS SHE UNDERSTANDS. DENIES NEEDS.
[~2017-08-12 19:35] MED LIST changes: +DAKIN'S 0.125%480 M1 TOPICAL; +DIFLUCAN100 MG PO; +FERROUS SULFAT325 MG PO; +FLORAJEN3 CAPS460 MG PO; +HUMULIN R100 U/ML SC; +IPRAT-ALBUT 0.5-3 ML UPD; +Levaquin PREMIX IV; +MUCINEX600 MG PO; +NYSTATIN1 PWD TOPICAL; +TESSALON PERLE100 MG PO
--- NOTE | 2017-08-12 20:00 | NUR ---
REMAINS IN BED, AWAKE.
[2017-08-12 20:07] VITALS: BMI 38.2
--- NOTE | 2017-08-12 22:10 | NUR ---
HS MEDS GIVEN TO PATIENT. NO COMPLAINTS AT THIS TIME.
--- NOTE | 2017-08-13 00:35 | NUR ---
ADMISSION ASSESSMENT AND HISTORY COMPLETE. ADMISSION DOCUMENTS SIGNED. DENIES CURRENT NEEDS.
--- NOTE | 2017-08-13 02:35 | NUR ---
PATIENT C/O PAIN LEVEL OF 7/10 IN LEFT FOOT. SCANNED MED, BUT PATIENT INSISTED ON GETTING UP TO BEDSIDE COMMODE PRIOR TO TAKING IT. SPENT 20 MINUTES ON BSC TO URINATE AND HAVE TRACE BM. FOUND THE DRESSING ON HER LEFT LE ROLLING UP, SO I PERFORMED COMPLETE DRESSING CHANGE TO BILAT LE'S AND LEFT FOOT. TOOK THE NORCO 10/325 X1 TAB AFTER TOILETING AROUND 0200.
--- NOTE | 2017-08-13 04:30 | NUR ---
IN BED IN PARTIAL LEFT SIDELYING POSITION. APPEARS COMFORTABLE.
--- NOTE | 2017-08-13 06:50 | NUR ---
IN BED, AFTER RECENT ASSIST UP TO BSC TO URINATE. DENIES CURRENT NEEDS.
[2017-08-13 07:44] LABS: BASOPHILS 0.2 % (0-2); EOSINOPHILS 5.2 % (0-7); HEMATOCRIT 27.2 % (36.0-48.0); HEMOGLOBIN 8.4 g/dL (12-16); IMMATURE GRANULOCYTES 0.9 % (0-5); LYMPHOCYTES 16.9 % (15-50); MCH 23.1 pg (26.0-34.0); MCHC 30.9 g/dL (31.0-37.0); MCV 74.9 fL (80.0-100.0); MEAN PLATELET VOLUME 9.5 fL (7.4-10.4); MONOCYTES 13.5 % (2-11); NEUTROPHILS 63.3 % (40-80); PLATELET COUNT 229 10x3/uL (130-400); RBC 3.63 10x6/uL (4.00-5.40); WBC 9.4 10x3/uL (4.8-10.8)
[2017-08-13 07:52] LABS: CALC OSMOLALITY 277 mosm/kg (275-300); CALCIUM 7.8 mg/dL (8.5-10.1); CARBON DIOXIDE 20.6 mmol/L (21.0-32.0); CHLORIDE - SERUM 106 mmol/L (98-107); CREATININE - SERUM 0.7 mg/dL (0.6-1.3); POTASSIUM - SERUM 3.8 mmol/L (3.5-5.1); SODIUM 138 mmol/L (136-145); UREA NITROGEN 11 mg/dL (7-18); eGFR NON AFRICAN AMERICAN 87 mL/min (90-120)
[2017-08-13 07:54] LABS: GLUCOSE 145 mg/dL (74-106)
--- NOTE | 2017-08-13 08:00 | NUR ---
SHIFT ASSMT COMPLETED.CL IN REACH.DRSG TO BILAT LOWER EXTREMITIES DRY AND INTACT.
[2017-08-13 09:28] VITALS: BP 143/48
--- NOTE | 2017-08-13 12:00 | NUR ---
SITTING UP IN WC EATING LUNCH.CL IN REACH.
[2017-08-13 13:42] VITALS: BMI 38.1
--- NOTE | 2017-08-13 16:00 | NUR ---
RESTING QUIETLY.CL IN REACH.
--- NOTE | 2017-08-13 20:10 | NUR ---
PT. IN BED WITH HOB UP FOR COMFORT AND IS RESTING. ASSESSMENT COMPLETED. NO VOICED NEEDS AT THIS TIME. DRESSINGS TO BLE'S C/D/I AT THIS TIME. CALL LIGHT WITHIN REACH.
[2017-08-13 20:35] VITALS: BP 156/91
--- NOTE | 2017-08-13 23:26 | NUR ---
PT. IN BED WITH HOB UP FOR COMFORT WITH EYES CLOSED AND RESP. DEEP AND EVEN. CALL LIGHT WITHIN REACH.
--- NOTE | 2017-08-14 03:13 | NUR ---
PT. IN BED WITH HOB UP FOR COMFORT AND LE'S ELEVATED UP ON PILLOW. EYES CLOSED AND RESP. EVEN WITH CALL LIGHT WITHIN REACH.
[2017-08-14 10:33] VITALS: BP 181/87
[2017-08-14 19:30] VITALS: BP 110/59
--- NOTE | 2017-08-14 19:40 | NUR ---
PT. IN BED WITH HOB UP FOR COMFORT AND IS WATCHING TV. ASSESSMENT COMPLETED. NO VOICED NEEDS AT THIS TIME AND HER CALL LIGHT IS WITHIN REACH.
--- NOTE | 2017-08-14 23:19 | NUR ---
PT. IN BED WITH HOB UP FOR COMFORT WITH EYES CLOSED AND RESP. EVEN. CALL LIGHT WITHIN REACH.
--- NOTE | 2017-08-15 03:16 | NUR ---
PT. IN BED WITH HOB UP FOR COMFORT WITH HER EYES CLOSED AND RESP. EVEN. CALL LIGHT WITHIN REACH.
[2017-08-15 07:16] LABS: BASOPHILS 0.1 % (0-2); IMMATURE GRANULOCYTES 0.7 % (0-5); LYMPHOCYTES 15.2 % (15-50); MCH 22.9 pg (26.0-34.0); MCHC 30.8 g/dL (31.0-37.0); MCV 74.3 fL (80.0-100.0); MEAN PLATELET VOLUME 9.7 fL (7.4-10.4); MONOCYTES 9.6 % (2-11); NEUTROPHILS 71.4 % (40-80); RDW 17.1 % (11.5-14.5); WBC 10.3 10x3/uL (4.8-10.8)
[2017-08-15 07:30] LABS: HEMOGLOBIN A1C 11.8 % (4.8-6.0)
[2017-08-15 07:31] LABS: PLATELET COUNT 293 10x3/uL (130-400)
[2017-08-15 07:43] LABS: CALC OSMOLALITY 274 mosm/kg (275-300); CALCIUM 7.7 mg/dL (8.5-10.1); CARBON DIOXIDE 21.3 mmol/L (21.0-32.0); CHLORIDE - SERUM 103 mmol/L (98-107); CREATININE - SERUM 0.6 mg/dL (0.6-1.3); GLUCOSE 162 mg/dL (74-106); POTASSIUM - SERUM 3.5 mmol/L (3.5-5.1); SODIUM 136 mmol/L (136-145); UREA NITROGEN 9 mg/dL (7-18); eGFR NON AFRICAN AMERICAN > 90 mL/min (90-120)
[2017-08-15 07:54] VITALS: BP 172/57
--- NOTE | 2017-08-15 08:00 | NUR ---
PATIENT IS ALERT/OREINT X4. CALL LIGHT WITHIN REACH. USING CALL LIGHT FOR NEEDS
[2017-08-15 09:45] LABS: ERYTHROCYTE SEDIMENTATION RATE 24 mm/hr (0-30)
--- NOTE | 2017-08-15 10:33 | NUR ---
PATIENT USING BED SIDE COMMODE. STAND BY ASST FOR PATIENT TO GET OUT OF BED ONTO COMMODE
--- NOTE | 2017-08-15 11:50 | NUR ---
GLUCOSE LEVEL 162. FOUR UNITS OF SLIDING SCALE INSULIN GIVEN PER ORDER
--- NOTE | 2017-08-15 17:22 | NUR ---
PATIENT SITTING UP AT THE BEDSIDE TALKING ON THE PHONE. VOICES NO NEEDS AT THIS TIME
--- NOTE | 2017-08-15 18:43 | NUR ---
RESTING QUIETLY IN BED. CALL LIGHT IN REACH. BED IN LOWEST POSITION.
[2017-08-15 19:00] VITALS: BP 149/74
--- NOTE | 2017-08-15 19:38 | NUR ---
PM ROUNDS MADE, PT RESTING AT THIS TIME WITH EYES CLOSED, RESP QUIET, NO DISTRESS NOTED, LEFT UNDISTURBED AT THIS TIME
--- NOTE | 2017-08-15 20:10 | NUR ---
PT RESTING WITH EYES CLOSED, AROUSES TO SOFT VERBAL STIMULATION, DRESSINGS ON LOWER LEFT AND RIGHT LEGS INTACT WITH NO DRAINAGE NOTED, INFORMED PT THAT I WILL CHANGE THE DRESSING AT 2AM, PT VERBALIZES UNDERSTANDING, PT DENIES NEEDS OR PAIN AT THIS TIME, BED IN LOW POSITION, SIDE RAILS X 2, CALL LIGHT IN REACH, BED ALARM ON AND WORKING PROPERLY
--- NOTE | 2017-08-15 21:02 | NUR ---
PT RESTING WITH EYES CLOSED, AROUSES TO SOFT VERBAL STIMULATION, OBTAINED FSBS, INFORMED PT THAT I WILL BE BACK SHORTLY TO ADM 9PM MEDS, PT VERBALIZES UNDERSTANDING, DENIES NEEDS AT THIS TIME
--- NOTE | 2017-08-15 21:40 | NUR ---
PT RESTING WITH EYES CLOSED, AROUSES TO SOFT VERBAL STIMULATION, ADM 2100 MEDS, PT UP TO BR VIA WC, PT STATES "I MUST HAVE WORKED HARD TODAY BECAUSE I'M SO STIFF FEELING AND MY BACK IS HURTING", PT TO COMMODE, VOIDED BY SELF WITH NO DIFFICULTY, PT TO WC, BACK TO BED, PT REQUESTS PAIN MED, PT POSITIONED IN BED, BOTH LEGS ELEVATED ON AND PILLOW, BED IN LOW POSITION, SIDE RAILS X 2, CALL LIGHT IN REACH, BED ALARM ON AND WORKING PROPERLY
--- NOTE | 2017-08-15 22:02 | NUR ---
ADM GAY PO PER MD ORDERS, SEE EMAR, DENIES FURTHER NEEDS AT THIS TIME
--- NOTE | 2017-08-15 22:45 | NUR ---
PT RESTING WITH EYES CLOSED, RESP QUIET, NO DISTRESS NOTED, LEFT UNDISTURBED AT THIS TIME, BED IN LOW POSITION, SIDE RAILS X 2, CALL LIGHT IN REACH, BED ALARM ON AND WORKING PROPERLY
--- NOTE | 2017-08-16 01:00 | NUR ---
PT EMBEDDED SOFTWARE ENGINEER LIGHT, PT UP TO BR VIA WC, PT VOIDED BY SELF WITH NO DIFFICULTY, PT BACK TO BED, WARM BLANKET PROVIDED, DENIES FURTHER NEEDS, BED IN LOW POSITION, SIDE RAILS X 2, CALL LIGHT IN REACH, BED ALARM ON AND WORKING PROPERLY
--- NOTE | 2017-08-16 02:25 | NUR ---
PT RESTING WITH EYES CLOSED, AROUSES TO SOFT VERBAL STIMULATION, BILATERAL LOWER LEG DRESSING CHANGES PER MD ORDERS PER THIS RN AND JUSTIN BARTON, RN, PT TOLERATED WELL, PT DENIES NEEDS AT THIS TIME, BED IN LOW POSITION, SIDE RAILS X 2, CALL LIGHT IN REACH, BED ALARM ON AND WORKING PROPERLY
--- NOTE | 2017-08-16 05:22 | NUR ---
PT MATERIAL WORKER LIGHT, PT UP TO BR VIA WC WITH ASSISTANCE, PT VOIDED BY SELF WITH NO DIFFICULTY, PT BACK TO BED, ADM 0600 MEDS PER MD ORDERS, SEE EMAR, FSBS OBTAINED, PT C/O BACK PAIN, ADM NORCO PER MD ORDERS FOR PAIN, SEE EMAR, INFORMED PT THAT I WILL BE BACK AROUND 6:30AM TO ADM INSULIN, PT VERBALIZES UNDERSTANDING, DENIES FURTHER NEEDS AT THIS TIME
--- NOTE | 2017-08-16 06:35 | NUR ---
PT RESTING WITH EYES CLOSED, AROUSES TO SOFT VERBAL STIMULATION, ADM INSULIN PER MD ORDERS, SEE EMAR, PT DENIES NEEDS AT THIS TIME
--- NOTE | 2017-08-16 06:51 | NUR ---
SHIFT REPORT TO DAY SHIFT
[2017-08-16 09:00] VITALS: BP 139/47
--- NOTE | 2017-08-16 09:42 | NUR ---
PT AM MEDS ADMINISTERED. PT DENIES NEEDS AT THIS TIME. WCTM.
[2017-08-16 12:04] VITALS: Ht 167.6 cm; Wt 107.2 kg
--- NOTE | 2017-08-16 12:15 | NUR ---
PT EATING LUNCH, DENIES NEEDS. WCTM.
--- NOTE | 2017-08-16 15:15 | NUR ---
PT SITTINGUP IN ROOM WAITING FOR DINNER, DENIES NEEDS. WCTM.
[2017-08-16 20:00] VITALS: BP 158/65
--- NOTE | 2017-08-16 20:00 | NUR ---
PT IN WC. WATCHING TV. ALERT & ORIENTED. FSBS ACHS. STAND BY TO MIN. ASSIST. DRESSINGS ON BILATERAL LOWER EXT . C/D/I. NO O2. NO IV. CALL LIGHT WIHTIN REACH.
--- NOTE | 2017-08-16 20:10 | NUR ---
IN BED, AWAKE. DENIES NEEDS.
--- NOTE | 2017-08-17 00:05 | NUR ---
PT IN BED WITH HOB UP FOR COMFORT. EYES CLOSED. CHEST RISING AND FALLING. BED IN LOWEST POSITION AND CALL LIGHT WITHIN REACH.
--- NOTE | 2017-08-17 01:50 | NUR ---
BILAT. LOWER EXT. DRESSING CHANGE DONE ORDERED. PT TOLERATED. PROCEDURE WELL.
--- NOTE | 2017-08-17 04:45 | NUR ---
PT LYING IN BED WITH HOB UP FOR COMFORT. EYES CLOSED. RESPIRATIONS ARE EVEN AND UNLABORED. BED IN LOWEST POSITION AND CALL LIGHT WIHTIN REACH. BED ALARM ON.
[2017-08-17 06:45] LABS: BASOPHILS 0.2 % (0-2); EOSINOPHILS 4.7 % (0-7); HEMATOCRIT 27.4 % (36.0-48.0); HEMOGLOBIN 8.5 g/dL (12-16); IMMATURE GRANULOCYTES 0.8 % (0-5); LYMPHOCYTES 19.7 % (15-50); MCH 23.3 pg (26.0-34.0); MCV 75.1 fL (80.0-100.0); MEAN PLATELET VOLUME 9.5 fL (7.4-10.4); MONOCYTES 11.1 % (2-11); NEUTROPHILS 63.5 % (40-80); PLATELET COUNT 346 10x3/uL (130-400); RBC 3.65 10x6/uL (4.00-5.40); RDW 17.2 % (11.5-14.5); WBC 8.7 10x3/uL (4.8-10.8)
[2017-08-17 07:02] LABS: CALC OSMOLALITY 278 mosm/kg (275-300); CALCIUM 7.8 mg/dL (8.5-10.1); CARBON DIOXIDE 23.3 mmol/L (21.0-32.0); CHLORIDE - SERUM 104 mmol/L (98-107); GLUCOSE 147 mg/dL (74-106); SODIUM 139 mmol/L (136-145); UREA NITROGEN 8 mg/dL (7-18)
[2017-08-17 07:11] LABS: CREATININE - SERUM 0.8 mg/dL (0.6-1.3); POTASSIUM - SERUM 4.1 mmol/L (3.5-5.1); eGFR NON AFRICAN AMERICAN 75 mL/min (90-120)
[2017-08-17 07:30] VITALS: BP 196/92
--- NOTE | 2017-08-17 08:35 | NUR ---
PT AM MEDS ADMINISTERED. PT EATING BREAKFAST, DENIES NEEDS. WCTM.
--- NOTE | 2017-08-17 12:15 | NUR ---
PT SITTING UP IN ROOM, EATING LUNCH, DENIES NEEDS. WCTM.
--- NOTE | 2017-08-17 15:49 | NUR ---
PT RESTING IN BED, VISITOR AT BEDSIDE. PT DENIES NEEDS. WCTM.
--- NOTE | 2017-08-17 16:34 | NUR ---
PATIENT ADMITTED TO REHAB FROM ACUTE FLOOR. LUCRECIA MURRAY WITH DR. QUIROZ IS PATIENT PCP. 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 FANNY AT [facility] IS HER PHARMACY. TENATIVE DISCHARGE DATE IS 08/25/17/ PLANS ARE FOR PATIENT TO RETURN HOME WITH HER ROOMMATE. WILL CONTINUE TO FOLLOW WITH PATIENT .
--- NOTE | 2017-08-17 18:44 | NUR ---
PT RESTING, EYES CLOSED. BED LOW. CL IN REACH.
--- NOTE | 2017-08-17 19:15 | NUR ---
BEDSIDE HANDOFF AND REPORT COMPLETE. NO COMPLAINTS AT THIS TIME.
[2017-08-17 19:30] VITALS: BP 139/53
--- NOTE | 2017-08-17 21:05 | NUR ---
ASSISTED PATIENT UP TO BR AND THEN BACK TO BED. ASSESSMENT AND HS MEDS WERE THEN COMPLETED. C/O LOW BACK PAIN OF LEVEL 5/10. GAVE HER NORCO 10 X1 TAB PO.
--- NOTE | 2017-08-17 22:25 | NUR ---
IN BED, RESTING QUIETLY, EYES CLOSED.
--- NOTE | 2017-08-18 00:10 | NUR ---
UP WITH ASSIST TO BR AND TO WASH UP IN LIEU OF SHOWER OR BEDBATH (PATIENT CHOICE). LINENS CHANGED.
--- NOTE | 2017-08-18 02:30 | NUR ---
RESTING QUIETLY, EYES CLOSED. WILL DEFER LEG DRESSING CHANGES UNTIL AROUND 0430.
--- NOTE | 2017-08-18 05:15 | NUR ---
GAVE PATIENT EARLY AM MEDS WELL NORCO 10 X1 TAB PO FOR PAIN LEVEL OF 5/10 IN LOW BACK. WILL RETURN LATER TO CHANGE DRESSINGS TO MAGDALENO PEREIRA.
--- NOTE | 2017-08-18 06:55 | NUR ---
CHANGED DRESSINGS TO BILAT LE'S. PATIENT DENIES NEEDS.
[2017-08-18 07:54] VITALS: BP 129/64
--- NOTE | 2017-08-18 08:15 | NUR ---
PT RESTING IN BED WITH EYES OPEN CALL LIGHT IN REACH NO PROBLEMS WILL MONITER
--- NOTE | 2017-08-18 15:30 | NUR ---
RESTING QUIETLY.CL IN REACH.
--- NOTE | 2017-08-18 19:15 | NUR ---
RESTING IN BED BREATHING EVEN AND UNLABORED B/S ACTIVE, DENIES PAIN OR DISCOMFORT CALL LIGHT AND WATER IN REACH.
--- NOTE | 2017-08-18 19:30 | NUR ---
IN BED, AWAKE. DENIES NEEDS.
--- NOTE | 2017-08-18 22:00 | NUR ---
RESTING IN BED NO C/O PAIN OR DISCOMFORT NOTED CALL LIGHT IN REACH.
[2017-08-19] VITALS (9 sets, daily range): BP systolic 107–157; BP diastolic 52–81
--- NOTE | 2017-08-19 00:01 | NUR ---
PRN NORCO GIVEN [id number].
--- NOTE | 2017-08-19 01:52 | NUR ---
RESTING IN BED STATED LOP WAS A 2, CALL LIGHT AND WATER IN REACH.
--- NOTE | 2017-08-19 02:58 | NUR ---
RESTING IN BED EYES CLOSED NO C/O PAIN OR DISCOMFORT NOTED.
--- NOTE | 2017-08-19 04:02 | NUR ---
CHANGED DRESSINGS PER ORDERS, ASSISTED PT TO RESTROOM NO B/M NOTED, CALL LIGHT AND WATER IN REACH.
[2017-08-19 06:15] LABS: BASOPHILS 0.1 % (0-2); EOSINOPHILS 5.9 % (0-7); HEMATOCRIT 25.9 % (36.0-48.0); IMMATURE GRANULOCYTES 0.6 % (0-5); LYMPHOCYTES 24.6 % (15-50); MCH 23.3 pg (26.0-34.0); MCHC 30.9 g/dL (31.0-37.0); MCV 75.3 fL (80.0-100.0); MEAN PLATELET VOLUME 9.4 fL (7.4-10.4); MONOCYTES 9.6 % (2-11); NEUTROPHILS 59.2 % (40-80); PLATELET COUNT 378 10x3/uL (130-400); RBC 3.44 10x6/uL (4.00-5.40); RDW 17.3 % (11.5-14.5); WBC 6.8 10x3/uL (4.8-10.8)
[2017-08-19 06:42] LABS: CALC OSMOLALITY 277 mosm/kg (275-300); CALCIUM 8.1 mg/dL (8.5-10.1); CARBON DIOXIDE 20.9 mmol/L (21.0-32.0); CHLORIDE - SERUM 106 mmol/L (98-107); CREATININE - SERUM 0.8 mg/dL (0.6-1.3); GLUCOSE 132 mg/dL (74-106); POTASSIUM - SERUM 4.3 mmol/L (3.5-5.1); SODIUM 139 mmol/L (136-145); UREA NITROGEN 8 mg/dL (7-18); eGFR NON AFRICAN AMERICAN 75 mL/min (90-120)
--- NOTE | 2017-08-19 07:00 | NUR ---
RESTING QUIETLY IN BED. CALL LIGHT IN REACH. BED IN LOWEST POSITION.
--- NOTE | 2017-08-19 08:45 | NUR ---
DR. Reuben HEATH INTO SEE PATIENT NEW ORDERS RECEIVED.
--- NOTE | 2017-08-19 10:15 | NUR ---
PATIENT WORKING WITH OCCUPATIONAL THERAPIST. GETTING A SHOWER. STATED SHE FEELS NAUSATED. STATED SHE FEELS LIKE HER BLOOD SUGAR IS LOW. GLUCOSE LEVEL TAKEN BY THIS NURSE. 186. PATIENT DOES NOT HAVE ANY MEDICATION ORDER FOR NAUSEA. SALTINE CRAKERS AND DIET 7 UP OFFERED.
--- NOTE | 2017-08-19 13:19 | NUR ---
SALINE LOCK 20 JEAN MARIE INSERTED TO RIGHT HAND
--- NOTE | 2017-08-19 13:47 | NUR ---
UNIT OF [facility] STARTED. PATIENT PREMEDICATED WITH TYLENOL AND BENADRYL.
--- NOTE | 2017-08-19 17:00 | NUR ---
GLUCOSE LEVEL 187. FOUR UNITS OF SLIDING SCALE INSULIN GIVEN PER ORDER
--- NOTE | 2017-08-19 19:15 | NUR ---
RESTING IN BED, EYES CLOSED. APPEARS COMFORTABLE.
--- NOTE | 2017-08-19 21:55 | NUR ---
UP IN W/C BEDSIDE BED AFTER RECENT ASSIST TO BR COMMODE AND BACK. ASSESSMENT AND HS MEDS COMPLETE. DENIES PAIN. FSBS 122. HAD SOME DIFFICULTY SWALLOWING SCHEDULED BACTRIM DS, BUT GOT IS DOWN. EARLIER WAS NAUSEATED ON DAY SHIFT AND AFTER TAKING HS MEDS SAYS SHE FEELS A BIT QUEASY.
--- NOTE | 2017-08-19 22:40 | NUR ---
RESTING IN BED, EYES CLOSED.
--- NOTE | 2017-08-20 00:05 | NUR ---
SITTING UP ON BEDSIDE AT PRESENT. DENIES NEEDS.
--- NOTE | 2017-08-20 02:40 | NUR ---
IN BED, EYES CLOSED. LYING ON LEFT SIDE. APPEARS COMFORTABLE.
--- NOTE | 2017-08-20 04:15 | NUR ---
IN BED, EYES CLOSED RESTING QUIETLY ON BACK. NO EVIDENT DISCOMFORT.
--- NOTE | 2017-08-20 04:47 | NUR ---
GAVE PATIENT NORCO 10/325 X1 TAB PO FOR LOW BACK PAIN OF LEVEL 5/10.
--- NOTE | 2017-08-20 06:55 | NUR ---
FINALLY WAS ABLE TO RETURN TO PATIENT'S BEDSIDE TO PERFORM HER DRESSING CHANGES TO BILAT LOWER LEGS WHICH ARE NOW COMPLETE. ASKED PATIENT TO CONTACT FAMILY TO BRING ANOTHER TUBE OF MEDIHONEY FOR HER DRESSING CHANGES TOMORROW THERE IS NOT ENOUGH LEFT IN THE CURRENT TUBE. SAYS SHE WILL CALL HER DAUGHTER HER SON, "IS IN THE [place]."
--- NOTE | 2017-08-20 09:00 | NUR ---
PT AM MEDS ADMINISTERED. PT DENIES NEEDS. WCTM.
[2017-08-20 09:05] VITALS: BP 165/86
[2017-08-20 09:06] VITALS: BP 146/58
--- NOTE | 2017-08-20 12:15 | NUR ---
PT EATING LUNCH, DENIES NEEDS. WCTM.
--- NOTE | 2017-08-20 18:31 | NUR ---
PT EATING DINNER, DENIES NEEDS. WCTM.
--- NOTE | 2017-08-20 21:05 | NUR ---
REST IN BED AND WATCH TV.
[2017-08-20 23:31] VITALS: BP 146/58
--- NOTE | 2017-08-21 01:24 | NUR ---
RESTING IN BED WITH EYES CLOSED. NO S/S OF DISTRESS OBSERVED. CALL LIGHT AND OVERBED TABLE IN REACH.
--- NOTE | 2017-08-21 01:32 | NUR ---
REST IN BED, EYE CLOSE, CALL LIGHT IN REACH.
[2017-08-21 09:12] VITALS: BP 191/95
--- NOTE | 2017-08-21 09:42 | NUR ---
PT AM MEDS ADMINISTERED CRUSHED IN APPLESAUCE. PT REQUESTS NEXT TIME TO TRY AND TAKE THEM WHOLE. PT STATES NO OTHER NEEDS AT THIS TIME. WCTM.
--- NOTE | 2017-08-21 12:15 | NUR ---
PT EATING LUNCH, DENIES NEEDS. WCTM.
--- NOTE | 2017-08-21 18:02 | NUR ---
PT SITTING UP IN WC, DENIES NEEDS. WCTM.
[2017-08-21 19:00] VITALS: BP 163/73
--- NOTE | 2017-08-21 20:00 | NUR ---
PT IN BED WITH HOB UP FOR COMFORT. WATCHING TV. ALERT & ORIENTED. NO O2. RIGHT HAND SL. BILATERAL LOWER LEGS DRESSING INTACT. FSBS ACHS. BIG PILLS CUT IN HALF. BED IN LOWEST POSIITON AND CALL LIGHT WITHIN REACH.
--- NOTE | 2017-08-22 | NUR ---
PT IN BED WITH HOB UP FOR COMFORT. EYES CLOSED. CHEST RISING AND FALLING. BED IN LOWEST POSITION AND CALL LIGHT WITHIN REACH.
--- NOTE | 2017-08-22 04:00 | NUR ---
T LYING IN BED WITH HOB UP FOR COMFORT. EYES CLOSED. RESPIRATIONS ARE EVEN ND UNLABORED. BED IN LOWEST POSITION AND CALL LIGHT WITHIN REACH.
--- NOTE | 2017-08-22 05:10 | NUR ---
RESTING IN BED WITH EYES CLOSED. NO S/S OF DISTRESS OBSSERVED. DRESSINGS TO BILATERAL LOWER RXTREMITIES CLEAN, DRY AND INTACT. CALL LIGHT AND OVERBED TABLE IN REACH.
[2017-08-22 05:55] LABS: BASOPHILS 0.5 % (0-2); EOSINOPHILS 5.3 % (0-7); HEMATOCRIT 31.2 % (36.0-48.0); HEMOGLOBIN 9.7 g/dL (12-16); IMMATURE GRANULOCYTES 0.5 % (0-5); LYMPHOCYTES 33.8 % (15-50); MCH 23.7 pg (26.0-34.0); MCHC 31.1 g/dL (31.0-37.0); MCV 76.3 fL (80.0-100.0); MEAN PLATELET VOLUME 8.7 fL (7.4-10.4); NEUTROPHILS 50.9 % (40-80); PLATELET COUNT 432 10x3/uL (130-400); RBC 4.09 10x6/uL (4.00-5.40); RDW 17.7 % (11.5-14.5); WBC 6.2 10x3/uL (4.8-10.8)
[2017-08-22 06:18] LABS: ANION GAP 16.1 mmol/L (8-16); CALCIUM 8.2 mg/dL (8.5-10.1); CARBON DIOXIDE 20.3 mmol/L (21.0-32.0); CREATININE - SERUM 0.9 mg/dL (0.6-1.3); POTASSIUM - SERUM 4.4 mmol/L (3.5-5.1)
[2017-08-22 07:58] VITALS: BP 136/49
--- NOTE | 2017-08-22 08:03 | NUR ---
PATIENT SITTING UP IN WHEELCHAIR TO EAT BREAKFAST. CALL LIGHT WITHIN REACH. VOICES NO NEEDS AT THIS TIME.
--- NOTE | 2017-08-22 12:00 | NUR ---
GLUCOSE LEVEL 212. EIGHT UNITS OF SLIDING SCALE INSULIN GIVEN PER ORDER.
--- NOTE | 2017-08-22 13:14 | NUR ---
PATIENT HAS SIGNED A BED/CHAIR ALARM WAVIOR. PATIENT HAS A STEADY GAIT WHEN USING WHEELED WALKER. SELF PROPELLS IN WHEELCHAIR.
--- NOTE | 2017-08-22 17:30 | NUR ---
PRN NORCO GIVEN FOR BACK PAIN PER PATIENT REQUEST.
[2017-08-22 20:00] VITALS: BP 163/60
--- NOTE | 2017-08-22 20:00 | NUR ---
PT IS RESTING IN BED WITH EYES CLOSED. AWAKENS EASILY TO VERBAL STIMULI. PT DENIES ACUTE PAIN OR DISCOMFORT. PT HAS A BED ALARM WAIVER. SR'S ARE UP X 2 IN BED. CALL LIGHT AND BEDSIDE TABLE ARE WITHIN EASY REACH.
--- NOTE | 2017-08-22 22:13 | NUR ---
RESTING QUIETLY IN BED WITH EYES CLOSED. RESPS ARE EVEN AND UNLABORED. NO ACUTE DISTRESS NOTED.
--- NOTE | 2017-08-23 00:05 | NUR ---
RESTING IN BED WITH EYES CLOSED.
--- NOTE | 2017-08-23 03:06 | NUR ---
DRESSINGS TO BLE CHANGED PER ORDERS.
--- NOTE | 2017-08-23 08:00 | NUR ---
SITTING UP IN CHAIR ALERT AND ORIENTED X3. DENIES ANY NEEDS OR PAIN. CALL LIGHT WITHIN REACH, CHAIR BRAKES ON. WILL CONTINUE TO MONITOR
[2017-08-23 08:46] VITALS: BP 142/58
--- NOTE | 2017-08-23 10:50 | NUR ---
SITTING UP IN W/C WORKING CROSSWORD PUZZLE. NO S/SX OF ACUTE DISTRESS. CALL LIGHT AND PERSONAL ITEMS WITHIN REACH, W/C BRAKES LOCKED. WILL CONTINUE TO MONITOR
--- NOTE | 2017-08-23 12:51 | NUR ---
Nutrition Follow Up: RN was in with pt at the time of RD visit. Interview deferred. Chart reviewed. Pt is eating 61% meal avg on a diabetic diet. +BM 08/22/17. Labs reviewed. Meds noted including Lasix. Rec continue current diet. RD following.
--- NOTE | 2017-08-23 15:26 | NUR ---
SITTING UP IN W/C DENIES ANY NEEDS OR PAIN. NO S.SX OF ACUTE DISTRESS. CALL LIGHT AND PERSONAL BELONGINGS WITHIN REACH. WILL CONTINUE TO MONITOR
--- NOTE | 2017-08-23 19:25 | NUR ---
IN BED. AWAKENED WHEN DAYD SHIFT NURSE AND I ENTERED ROOM FOR SHIFT HANDOFF. PATIENT DENIES CURRENT NEEDS.
--- NOTE | 2017-08-23 20:00 | NUR ---
PATIENT AWAKE. DENIES NEEDS.
[2017-08-23 21:37] VITALS: BP 152/63
--- NOTE | 2017-08-23 22:05 | NUR ---
ASSESSMENT AND HS MEDS COMPLETE. DENIES NEEDS.
--- NOTE | 2017-08-24 | NUR ---
RESTING IN BED, EYES CLOSED.
--- NOTE | 2017-08-24 02:00 | NUR ---
IN BED, EYES CLOSED. APPEARS COMFORTABLE.
--- NOTE | 2017-08-24 04:35 | NUR ---
PATIENT C/O PAIN LEVEL OF 6/10 IN LOW BACK AND HIP. GAVE HER NORCO 10/325 X1 TAB PO FOR PAIN GIVING HER PO MEDS EARLY. TOLD HER I WILL RETURN LATER TO CHANGE HER DRESSINGS.
--- NOTE | 2017-08-24 05:30 | NUR ---
RESTING QUIETLY IN BED, EYES CLOSED.
[2017-08-24 06:32] LABS: BASOPHILS 0.4 % (0-2); EOSINOPHILS 2.3 % (0-7); HEMATOCRIT 32.1 % (36.0-48.0); HEMOGLOBIN 9.8 g/dL (12-16); IMMATURE GRANULOCYTES 0.2 % (0-5); LYMPHOCYTES 30.7 % (15-50); MCH 23.5 pg (26.0-34.0); MCHC 30.5 g/dL (31.0-37.0); MEAN PLATELET VOLUME 8.5 fL (7.4-10.4); MONOCYTES 11.1 % (2-11); NEUTROPHILS 55.3 % (40-80); PLATELET COUNT 380 10x3/uL (130-400); RBC 4.17 10x6/uL (4.00-5.40); RDW 18.3 % (11.5-14.5); WBC 4.9 10x3/uL (4.8-10.8)
--- NOTE | 2017-08-24 07:10 | NUR ---
FSBS WAS 144. DREWSSING CHANGES TO BILAT LE'S ARE COMPLETE. PATIENT DENIES NEEDS.
[2017-08-24 07:41] LABS: ANION GAP 14.1 mmol/L (8-16); CALCIUM 8.4 mg/dL (8.5-10.1); CARBON DIOXIDE 22.7 mmol/L (21.0-32.0); CREATININE - SERUM 0.9 mg/dL (0.6-1.3); POTASSIUM - SERUM 4.8 mmol/L (3.5-5.1)
--- NOTE | 2017-08-24 08:00 | NUR ---
DENIES NEEDS.CL IN REACH
--- NOTE | 2017-08-24 09:11 | NUR ---
PT AM MEDS ADMINISTERED. PT SITTING UP IN WC AT THIS TIME, DENIES NEEDS. WCTM.
[2017-08-24 11:12] VITALS: BP 146/73
--- NOTE | 2017-08-24 12:31 | NUR ---
PT EATING LUNCH, DENIES NEEDS. WCTM.
--- NOTE | 2017-08-24 16:47 | NUR ---
CARE TEAM MEETING: PATIENT HAS DONE WELL IN THERAPY AND WILL DISCHARGE HOME IN AM 08/25/17 WITH FAMILY.
--- NOTE | 2017-08-24 19:10 | NUR ---
BEDSIDE HANDOFF COMPLETE. PATIENT DENIES NEEDS.
--- NOTE | 2017-08-24 20:15 | NUR ---
RESTING IN BED, EYES CLOSED.
--- NOTE | 2017-08-24 21:50 | NUR ---
CONTINUES IN BED, EYES CLOSED. APPEARS COMFORTABLE.
[2017-08-24 23:00] VITALS: BP 137/65
--- NOTE | 2017-08-24 23:00 | NUR ---
ASSESSMENT AND HS MEDS COMPLETE. DENIES NEEDS. FSBS 140. REQUIRES NO SLIDING SCALE INSULIN.
--- NOTE | 2017-08-25 02:25 | NUR ---
CONTINUES IN BED, EYES CLOSED. NO DISTRESS NOTED.
--- NOTE | 2017-08-25 04:00 | NUR ---
PATIENT JUST RETURNED FROM BR. C/O PAIN LEVEL OF 7/10 IN LOW BACK. GAVE HER NORCO 10 X1 TAB PO.
--- NOTE | 2017-08-25 06:00 | NUR ---
PO MEDS WERE EARLIER GIVEN. DRESSING CHANGES TO BILAT LE'S COMPLETE. FSBS 158. GAVE PATIENT 4 UNITS REGULAR S/S INSULIN SC IN RIGHT UPPER ARM.
--- NOTE | 2017-08-25 08:15 | NUR ---
PT UP AT BEDSIDE IN WHEELCHAIR EATING BREAKFAST TOLERATING WELL CALL LIGHT IN REACH WILL MONITER
[2017-08-25 08:43] VITALS: BP 146/89
--- NOTE | 2017-08-25 09:39 | NUR ---
patient discharging home today with family. [facility] will resume care of patient at home. patient has all DME needed at this time. Lian Peña APN/ 08/30/17 @ 12:30. Patient choice forms for Home Health and [facility] form signed, explained and filed in chart. orders have been faxed with conformation recieved
--- NOTE | 2017-08-25 12:45 | NUR ---
PT DISCHARGED TO HOME VIA WHEELCHAIR WITH FRIEND DISCHARGE SUMMARY AND MEDS REVIEWED MEDS CALLED IN TO [facility] [place] PT TOLERATED WELL
--- NOTE | 2017-08-29 12:07 | RHP ---
PATIENT: TAMIKA MERINO MEDICAL RECORD: [id number] ACCOUNT: [id number] LOCATION:[place] [address] : 47 ADMISSION DATE: 08/12/17 REHABILITATION HISTORY AND PHYSICAL EXAMINATION POST ADMISSION PHYSICIAN EXAMINATION ADMITTING DIAGNOSIS: Diffuse myopathy. HISTORY OF PRESENT ILLNESS: The patient is a 72-year-old female patient admitted to the ER with diffuse myopathy secondary to pneumonia. She was admitted to the hospital on 08/08/2017. She arrived complaining of chest pain, fever, cough, diarrhea, generalized muscle weakness and peripheral sensory neuropathy secondary to her diabetes. This has been going on for 7 days. She was hypoxic with sat of at 90%. T-max 100.4. Lungs were clear bilaterally, but she has some obvious dyspnea and exertional shortness of breath. She was found to be anemic with an H&H 8.4 and 27.1. Chest x-ray showed a [id number] left pleural effusion, most likely related to pneumonia. Urine culture was positive for Enterococcus faecalis and Enterococcus faecalis was sensitive to Levaquin. Both lower extremities were edematous and dress for chronic stasis ulcers and had been followed by Dr. Navarro in the wound clinic. She was admitted with a consult for heme/onc for anemia and cardiology for chest pain. She is moderately independent with ADLs and mobility while using a rolling walker. Currently, she is afebrile, sat is 98% on 3 liters. Renal functions are doing somewhat better. She has fair balance, tires easily and had generalized and proximal weakness. She has s moderate to max assist for bed to chair. She plans to regain her strength, so she can return home after discharge. COMORBIDITIES: In this patient include hypothyroidism, diabetes, hypertension, pneumonia, COPD, generalized weakness, leukocytosis, chronic stasis ulcers, anemia, UTI, electrolyte abnormalities, hyperlipidemia, peripheral vascular disease, diabetes, fever, osteoarthritis, degenerative disk disease, obesity, vitamin D deficiency, and osteopenia. PAST MEDICAL HISTORY: Significant for hyperlipidemia, hypertension, chronic back pain, osteoarthritis, generalized weakness, type 2 diabetes, hypothyroidism, peripheral sensory neuropathy, obesity, vitamin E deficiency, and osteopenia. PAST SURGICAL HISTORY: Includes cholecystectomy that she had when she was 24. ALLERGIES: KEFLEX AND TETANUS. CURRENT MEDICATIONS: Include hydrochlorothiazide 25 mg daily; Cozaar 100 mg daily; potassium 20 mEq daily; metformin 1500 mg daily; she is on Synthroid 150 mcg daily; Levaquin 500 mg every 24 hours; Floranex 460 mg daily; furosemide 20 mg daily; nystatin powder topically t.i.d.; DuoNeb updrafts; she is on an intermediate resistance sliding scale; [place] 10/325 one tab every 6 hours p.r.n.; Mucinex 1200 mg b.i.d.; Neurontin 600 mg q.i.d.; ferrous sulfate 325 mg b.i.d.; Tessalon Perles 100 mg t.i.d.; aspirin 650 b.i.d. p.r.n.; she is on Norvasc 2.5 mg at bedtime; Xanax 0.5 mg every 12 hours p.r.n.; she is on polyethylene glycol 17 grams in 8 ounces of water daily. HABITS: No alcohol or tobacco use. HISTORY AND PHYSICAL [id number] TAMIKA MERINOAINE FAMILY HISTORY: Noncontributory. SOCIAL HISTORY: The patient hopes to return back home and get back to her prior level of functioning. REVIEW OF SYSTEMS: GENERAL: Does complain of weakness and fatigue. HEENT: Denies cold, cough, or congestion. CARDIOVASCULAR: Denies any chest pain. LUNGS: Does complain of shortness of breath especially with activity. PHYSICAL EXAMINATION: VITAL SIGNS: Stable. She is afebrile. Her height is 5 feet 6 inches, she is 237 pounds. GENERAL: A somewhat obese female in no acute distress, alert upon exam. HEENT: Normocephalic and atraumatic. Mucosa moist. NECK: Supple. No lymphadenopathy. LUNGS: Clear in upper [place]. Decreased breath sounds in the bases. HEART: Regular rate and rhythm. ABDOMEN: Benign. EXTREMITIES: No clubbing, cyanosis. She does have some edema and n dressings in place. NEUROLOGIC: She does have decreased sensation peripherally. LABORATORY DATA: White count is as 9.4, H&H 8.4 and 27.2 and platelet count was noted to be 229. Her sodium is 138, potassium 3.8, BUN and creatinine of 11 and 0.7, blood sugar is noted to be 145. ASSESSMENT: This is a 72-year-old female patient admitted to rehab with a working diagnosis of pneumonia, which actually resulted in a disuse myopathy. The patient has potential to make improvement. We instituted the following multidisciplinary therapies including to, but not limited to physical, occupational, respiratory, speech, nutritional services, prosthetics and orthotics. Given her complex condition and risk for more complications, rehabilitation services cannot be provided at a lower level of care such as a penitentiary facility. PLAN: 1. Admit to [facility] rehab for intensive inpatient therapy to include the following disciplines: A. Physical therapy to improve gait, all transfer skills and bed mobility to a modified independent level. B. Occupational therapy to improve activities of daily living to modified independent level. C. Case management to assist with discharge planning and placement options. D. Nutrition to assist with nutritional needs. E. Rehabilitation nursing to assist in monitoring the patient's underlying medical conditions and to assist with any type of bowel or bladder management. 2. The patient's current medications and medical care will be continued. 3. The patient will be placed on standard fall precautions. 4. The patient's estimated length of stay is approximately 7-10 days. 5. We will keep wound care involved in her care. 6. Discuss this patient during care team staffing next week. TRANSINT:[id number] Voice Confirmation ID: [id number] DOCUMENT ID: [id number] HISTORY AND PHYSICAL [id number] TAMIKA MERINO notes whether there has been none or any medical/functional change since admission: - No change since preadmission screen. SANDRA attests patient continues to be appropriate for IRF: - Continues to be appropriate. ALBA HEATH MD at 1207 CC: [id number] DICTATION DATE: 08/13/17 1001 BASS VIOL REPAIRER: 08/13/17 1213 DIS IN 08/25/17 [facility] [address] [place] [address]
== END 2017-08-25 13:20 | disposition home health service (06) | DRG 91 ==
LOC: D.REHAB 19:35
PROVIDERS: ADMIT Emergency Medicine
DX: G72.89 Other specified myopathies (principal); J18.9 Pneumonia, unspecified organism; N39.0 Urinary tract infection, site not specified; E03.9 Hypothyroidism, unspecified; I10 Essential (primary) hypertension; J44.9 Chronic obstructive pulmonary disease, unspecified; R53.1 Weakness; D72.829 Elevated white blood cell count, unspecified; I83.009 Varicose veins of unspecified lower extremity with ulcer of unspecified site; D64.9 Anemia, unspecified; E87.8 Other disorders of electrolyte and fluid balance, not elsewhere classified; R50.9 Fever, unspecified; E66.9 Obesity, unspecified; E55.9 Vitamin D deficiency, unspecified; M85.80 Other specified disorders of bone density and structure, unspecified site; E11.40 Type 2 diabetes mellitus with diabetic neuropathy, unspecified; E11.65 Type 2 diabetes mellitus with hyperglycemia

== ENCOUNTER → 2018-06-15 18:40 | Outpatient (CLI) | payer MEDICARE, BC ==
[2017-08-16 12:04] VITALS: BMI 38.1
== END | disposition home or self-care (01) ==
LOC: D.MAMMO 05-26 15:15
DX: Z12.31 Encounter for screening mammogram for malignant neoplasm of breast (principal)

== ENCOUNTER 2018-10-14 11:04 | Emergency (ER) | payer MEDICARE, BC ==
[~2018-10-14] VITALS: Ht 167.6 cm; Wt 110.9 kg
[2018-10-14 11:21] VITALS: BP 139/70; Ht 167.6 cm; Wt 110.9 kg
[2018-10-14] MEDS ORDERED: SINEQUAN25 MG PO (11:28)
[2018-10-14] MEDS ORDERED: BAYER CHEWABLE81 MG PO (11:28)
[2018-10-14] MEDS ORDERED: BACTROBAN CREAM15 GM TOPICAL (11:29)
[2018-10-14 12:40] LABS: BASOPHILS 0.4 % (0-2); EOSINOPHILS 4.7 % (0-7); HEMATOCRIT 31.9 % (36.0-48.0); HEMOGLOBIN 9.7 g/dL (12-16); IMMATURE GRANULOCYTES 0.3 % (0-5); LYMPHOCYTES 19.7 % (15-50); MCH 25.2 pg (26.0-34.0); MCHC 30.4 g/dL (31.0-37.0); MCV 82.9 fL (80.0-100.0); MEAN PLATELET VOLUME 8.9 fL (7.4-10.4); NEUTROPHILS 66.9 % (40-80); PLATELET COUNT 373 10x3/uL (130-400); RBC 3.85 10x6/uL (4.00-5.40); RDW 15.6 % (11.5-14.5); WBC 8.9 10x3/uL (4.8-10.8)
[2018-10-14 13:00] LABS: BILIRUBIN - TOTAL 0.32 mg/dL (0.2-1.3); CALCIUM 8.8 mg/dL (8.5-10.1); CARBON DIOXIDE 26.2 mmol/L (21.0-32.0); CREATININE - SERUM 1.5 mg/dL (0.6-1.3); POTASSIUM - SERUM 4.2 mmol/L (3.5-5.1); PROTEIN - SERUM 7.6 g/dL (6.4-8.2)
[2018-10-14] MEDS ORDERED: CLEOCIN HCL300 MG PO (16:04)
== END 2018-10-14 16:08 | disposition home or self-care (01) ==
LOC: D.ER 11:04
PROVIDERS: Family Medicine
DX: L03.115 Cellulitis of right lower limb (principal); E11.9 Type 2 diabetes mellitus without complications; I10 Essential (primary) hypertension

== ENCOUNTER → 2019-10-15 19:08 | Outpatient (CLI) | payer MEDICARE, BC ==
[2018-10-14 11:21] VITALS: BMI 39.4
[~2019-10-15 19:08] MED LIST changes: +BACTROBAN CREAM15 GM TOPICAL; +BAYER CHEWABLE81 MG PO; +CLEOCIN HCL300 MG PO; +SINEQUAN25 MG PO
[2019-10-15 20:46] LABS: BASOPHILS 0.9 % (0-2); EOSINOPHILS 11.8 % (0-7); HEMATOCRIT 33.5 % (36.0-48.0); HEMOGLOBIN 10.2 g/dL (12-16); IMMATURE GRANULOCYTES 0.3 % (0-5); LYMPHOCYTES 20.5 % (15-50); MCH 25.5 pg (26.0-34.0); MCHC 30.4 g/dL (31.0-37.0); MCV 83.8 fL (80.0-100.0); MEAN PLATELET VOLUME 10.9 fL (7.4-10.4); MONOCYTES 10.4 % (2-11); NEUTROPHILS 56.1 % (40-80); PLATELET COUNT 347 10x3/uL (130-400); RDW 15.2 % (11.5-14.5); WBC 7.6 10x3/uL (4.8-10.8)
[2019-10-15 21:00] LABS: ALBUMIN 3.6 g/dL (3.4-5.0); ANION GAP 18.6 mmol/L (8-16); BILIRUBIN - TOTAL 0.26 mg/dL (0.2-1.3); CALCIUM 9.1 mg/dL (8.5-10.1); CARBON DIOXIDE 20.6 mmol/L (21.0-32.0); CREATININE - SERUM 1.2 mg/dL (0.6-1.3); PROTEIN - SERUM 7.5 g/dL (6.4-8.2)
[2019-10-15 21:23] LABS: POTASSIUM - SERUM 6.2 mmol/L (3.5-5.1)
== END | disposition home or self-care (01) ==
LOC: D.LABREF 19:08
PROVIDERS: ATTEND Family Medicine
DX: E10.51 Type 1 diabetes mellitus with diabetic peripheral angiopathy without gangrene (principal); N18.4 Chronic kidney disease, stage 4 (severe); I13.0 Hypertensive heart and chronic kidney disease with heart failure and stage 1 through stage 4 chronic kidney disease, or unspecified chronic kidney disease; I25.10 Atherosclerotic heart disease of native coronary artery without angina pectoris

== ENCOUNTER → 2019-10-16 19:44 | Outpatient (CLI) | payer MEDICARE, BC ==
[2018-10-14 11:21] VITALS: BMI 39.4
[2019-10-16 21:29] LABS: ALBUMIN 3.2 g/dL (3.4-5.0); ANION GAP 13.6 mmol/L (8-16); BILIRUBIN - TOTAL 0.14 mg/dL (0.2-1.3); CALCIUM 8.7 mg/dL (8.5-10.1); CREATININE - SERUM 1.2 mg/dL (0.6-1.3); POTASSIUM - SERUM 5.6 mmol/L (3.5-5.1); PROTEIN - SERUM 6.9 g/dL (6.4-8.2)
== END | disposition home or self-care (01) ==
LOC: D.LABREF 19:44
PROVIDERS: ATTEND Family Medicine
DX: E11.51 Type 2 diabetes mellitus with diabetic peripheral angiopathy without gangrene (principal); I13.0 Hypertensive heart and chronic kidney disease with heart failure and stage 1 through stage 4 chronic kidney disease, or unspecified chronic kidney disease; I87.2 Venous insufficiency (chronic) (peripheral)

== ENCOUNTER 2020-01-04 05:06 | Inpatient (IN) | payer MEDICARE, BC ==
[~2020-01-04] VITALS: Ht 167.6 cm; Wt 104.3 kg
[2020-01-04 06:02] LABS: BASOPHILS 0.5 % (0-2); EOSINOPHILS 5.4 % (0-7); HEMOGLOBIN 9.8 g/dL (12-16); IMMATURE GRANULOCYTES 0.2 % (0-5); LYMPHOCYTES 17.9 % (15-50); MCH 23.1 pg (26.0-34.0); MCHC 29.7 g/dL (31.0-37.0); MCV 77.6 fL (80.0-100.0); MEAN PLATELET VOLUME 9.2 fL (7.4-10.4); MONOCYTES 9.5 % (2-11); NEUTROPHILS 66.5 % (40-80); PLATELET COUNT 261 10x3/uL (130-400); RBC 4.25 10x6/uL (4.00-5.40); RDW 15.2 % (11.5-14.5); WBC 6.4 10x3/uL (4.8-10.8)
[2020-01-04 06:08] LABS: CALC OSMOLALITY 277 mosm/kg (275-300); CALCIUM 9.2 mg/dL (8.5-10.1); CARBON DIOXIDE 22.9 mmol/L (21.0-32.0); CHLORIDE - SERUM 100 mmol/L (98-107); CREATININE - SERUM 1.6 mg/dL (0.6-1.3); POTASSIUM - SERUM 4.5 mmol/L (3.5-5.1); SODIUM 132 mmol/L (136-145); UREA NITROGEN 27 mg/dL (7-18); eGFR NON AFRICAN AMERICAN 33 mL/min (90-120)
[2020-01-04 06:10] LABS: GLUCOSE 249 mg/dL (74-106)
[2020-01-04 06:11] LABS: APTT 27.2 SECONDS (22.8-39.4); INR 1.07 (0.85-1.17); PROTIME 13.8 SECONDS (11.6-15.0)
[2020-01-04 06:25] LABS: ALBUMIN 3.3 g/dL (3.4-5.0); ALKALINE PHOSPHATASE 121 U/L (30-120); ALT (SGPT) 13 U/L (10-68); BILIRUBIN - TOTAL 0.39 mg/dL (0.2-1.3); CKMB 0.8 U/L (0.0-3.6); CREATINE KINASE 75 UL (21-215); PRO BNP 205 pg/mL (0-125); PROTEIN - SERUM 8.1 g/dL (6.4-8.2)
[2020-01-04 06:30] LABS: TROPONIN-I < 0.017 ng/mL (0.000-0.060)
[2020-01-04 06:54] LABS: BILIRUBIN NEGATIVE (NEGATIVE); GLUCOSE NEGATIVE (NEGATIVE); KETONE NEGATIVE (NEGATIVE); NITRITE NEGATIVE (NEGATIVE); UROBILINOGEN NORMAL (NORMAL)
[2020-01-04 06:55] LABS: BACTERIA MODERATE /hpf (NEGATIVE); EPITHELIAL CELLS 0-5 /hpf (0-5); RED CELLS - URINE 0-5 /hpf (0-5)
--- NOTE | 2020-01-04 08:45 | NUR ---
PT RECEIVED ALERT AND AWAKE SITTING IN BED. 97% ROOM AIR. WOUNDS TO BLE PT STATES HAS BEEN TREATING FOR AWHILE. MULTIPLE SMALL ULCERATED AREAS, NO DRESSING AT PRESENT. HOME MEDS NOT ABLE TO REVIEW DUE TO PT POOR HISTORIAN, STATES [facility] COMES ONCE A WEEK AND ASSIST WITH MEDS.
[2020-01-04 08:54] VITALS: BP 167/84
[2020-01-04 12:11] VITALS: BMI 37.1
--- NOTE | 2020-01-04 12:26 | NUR ---
CALL PLACED TO [facility] REGARDING PT'S HOME MED LIST WHICH THEY ASSIST WITH EACH WEEK. NURSE IN A CONFERANCE CALL AT PRESENT BUT WILL CALL WHEN OUT. WILL UPDATE LIST WHEN RECEIVED.
[2020-01-04 13:37] VITALS: Ht 167.6 cm; Wt 104.3 kg
[2020-01-04 14:21] LABS: % SATURATION 6 % (15-55); IRON 29 ug/dl (35-150); TOTAL IRON BIND CAPACITY 424 ug/dl (260-445); UNSAT IRON BIND CAPACITY 395 ug/dl (150-375)
[2020-01-04] MEDS ORDERED: DOXEPIN HCL10 MG PO (14:49)
[2020-01-04] MEDS ORDERED: GABAPENTIN100 MG PO (14:53)
[2020-01-04] MEDS ORDERED: NEXIUM20 MG PO (14:54)
[2020-01-04] MEDS ORDERED: BENICAR HCT 401 EAC1 PO (14:57)
[2020-01-04] MEDS ORDERED: NOVOLIN 70/30 110 ML SC (14:59)
--- NOTE | 2020-01-04 15:04 | NUR ---
ELEVATED D-DIMER CALLED IN TO [facility]. ORDERS GIVEN FOR VQ SCAN. HOME MED LIST ALSO UPDATED AND ORDERS CHANGED ACCORDINGLY.
--- NOTE | 2020-01-04 16:49 | MORECARE ---
CASE MANAGEMENT DISCHARGE SUMMARY PATIENT: TAMIKA MERINO UNIT: [id number] ADM DATE: 01/04/20 AGE: 74 : 46 SEX: F ROOM/BED: D.2132 AUTHOR: INA DIAS PHYSICIAN: REFERRING PHYSICIAN: BRENDA PEREYRA MD DATE OF SERVICE: 01/04/20 Discharge Plan Patient Name: [facility]AMIKA MERINO [facility] [facility] 1945 Planned Disposition: Anticipated Discharge Date: Discharge Date: Expected LOS: Initial Reviewer: [email or web address] Initial Review Date: 01/04/2020 Generated: 01/04/20 5:48 pm Patient Name: TAMIKA MERINO Page [phone] at 1649 All edits/amendments must be made on the electronic document DICTATION DATE: 01/04/201647 MACHINE SHOP INSPECTOR: DEL 01/04/201647 RPT#: [id number] DC DATE: STATUS: ADM IN [facility] [address] [place] [address] END OF REPORT
--- NOTE | 2020-01-04 16:55 | MORECARE ---
CASE MANAGEMENT DISCHARGE SUMMARY PATIENT: TAMIKA MERINO UNIT: [id number] ADM DATE: 01/04/20 AGE: 74 : 46 SEX: F ROOM/BED: D.2132 AUTHOR: INA DIAS PHYSICIAN: REFERRING PHYSICIAN: BRENDA PEREYRA MD DATE OF SERVICE: 01/04/20 Discharge Plan Patient Name: TAMIKA MERINO [facility] [facility] 1945 Planned Disposition: Home with Home Health Anticipated Discharge Date: Discharge Date: Expected LOS: Initial Reviewer: [email or web address] Initial Review Date: 01/04/2020 Generated: 01/04/20 5:55 pm DCPIA - Discharge Planning Initial Assessment Updated by [email or web address]: Claude Messina on 01/04/20 4:53 pm * Is the patient Alert and Oriented? Yes * How many steps to enter\exit or inside your home? RAMP * PCP DR. HEATH * [place] [facility] [place] [address] * Preadmission Environment Home with Family * ADLs Independent * Equipment Rolling Walker * Other Equipment ROLLATOR WALKER, NO MEDICAL EQUIPMENT PROVIDER PREFERENCE * List name and contact numbers for known caregivers / representatives who currently or will assist patient after discharge: RASHID SHUKLA, SIGNIFICANT OTHER, * Verbal permission to speak to the caregivers and representatives has been obtained from the patient. N/A * Community resources currently utilized None * Please name any agencies selected above. NONE * Additional services required to return to the preadmission environment? No * Can the patient safely return to the preadmission environment? Yes * Has this patient been hospitalized within the prior 30 days at any hospital? No Last DP export: 01/04/20 3:49 p Patient Name: TAMIKA MERINO Page [phone] at 1655 All edits/amendments must be made on the electronic document DICTATION DATE: 01/04/201654 AND TAXI INSTRUCTOR BUS TROLLEY: DEL 01/04/201654 RPT#: [id number] DC DATE: STATUS: ADM IN [facility] [address] [place] [address] END OF REPORT
--- NOTE | 2020-01-04 17:02 | MORECARE ---
CASE MANAGEMENT DISCHARGE SUMMARY PATIENT: TAMIKA MERINO UNIT: [id number] ADM DATE: 01/04/20 AGE: 74 : [birth year] SEX: F ROOM/BED: D.6296 AUTHOR: LARISSA,DOC PHYSICIAN: REFERRING PHYSICIAN: BRENDA PEREYRA MD DATE OF SERVICE: 01/04/20 Discharge Plan Patient Name: TAMIKA MERINO Facility: [facility]:[place] : 1945 Planned Disposition: Home with Home Health Anticipated Discharge Date: Discharge Date: Expected LOS: Initial Reviewer: [id number] Initial Review Date: 01/04/2020 Generated: 01/04/20 6:02 pm Comments DCP- Discharge Planning Updated by [id number]: Claude Messina on 01/04/20 4:[address] Patient Name: TAMIKA MERINO Admission Status: ER Accout number: [id number] Admission Date: 01-04-2020 : 1945 Admission Diagnosis: Attending: BRENDA PEREYRA Current LOS: 1 Anticipated DC Date: Planned Disposition: Home with Home Health Primary Insurance: MEDICARE A & B PLANNED EXTERNAL PROVIDER: [facility] Discharge Planning Comments: CM ATTEMPTED TO CALL PT SEVERAL TIMES THROUGH THE DAY TO COMPLETE INITIAL ASSESSMENT, PT NOT ANSWERING THE ROOM PHONE. CM CALLED AND SPOKE TO PT'S LISTED EMERGENCY CONTACT, RASHID SHUKLA, , WHO REPORTS BEING PT'S SIGNIFICANT OTHER AND LIVES WITH PT AT HOME. RASHID REPORTS PT LIVING AT HOME INDEPENDENTLY AND HAS [facility] TO BANDANGE PT'S LEG NEEDED. PT HAS A ROLLATOR WALKER WITH NO MEDICAL EQUIPMENT PROVIDER PREFERENCE AND NO OTHER OUTSIDE SERVICES ASSISTING IN THE HOME. CM DISCUSSED AVAILABILITY OF HOME HEALTH, REHAB SERVICES AND MEDICAL EQUIPMENT. RASHID DOES NOT THINK PT WILL H AVE ANY DISCHARGE NEEDS, REPORTS HE WILL PICK PT UP FOR DISCHARGE HOME. CHOICE FOR [facility] COMPLETED. PT'S PLAN IS TO RETURN HOME WITH SIGNFICANT OTHER, RESUMPTION OF [facility]. FAMILY TO TRANSPORT HOME. FOR RESUMPTION OF HOME HEALTH, NOTIFY SAMANTHA AT [phone], FAX DISCHARGE INFORMATION TO [facility] AT [phone]. Banquet Manager: Claude Messina DCPIA - Discharge Planning Initial Assessment Updated by [id number]: Claude Messina on 01/04/20 4:53 pm * Is the patient Alert and Oriented? Yes * How many steps to enter\exit or inside your home? RAMP * PCP DR. HEATH * [facility] * Preadmission Environment Home with Family * ADLs Independent * Equipment Rolling Walker * Other Equipment ROLLATOR WALKER, NO MEDICAL EQUIPMENT PROVIDER PREFERENCE * List name and contact numbers for known caregivers / representatives who currently or will assist patient after discharge: RASHID SHUKLA, SIGNIFICANT OTHER, * Verbal permission to speak to the caregivers and representatives has been obtained from the patient. N/A * Community resources currently utilized None * Please name any agencies selected above. NONE * Additional services required to return to the preadmission environment? No * Can the patient safely return to the preadmission environment? Yes * Has this patient been hospitalized within the prior 30 days at any hospital? No External [facility] Next Contact Date: 01/04/2020 Service Request Date: Service Type: Resolution: Reviewer: Comments: Last DP export: 01/04/20 3:55 p Patient Name: TAMIKA MERINO Page [phone] at 1702 All edits/amendments must be made on the electronic document DICTATION DATE: 01/04/201701 RECORDS MANAGEMENT ASSOCIATE: DEL 01/04/201701 RPT#: [id number] DC DATE: STATUS: ADM IN [facility] [address] [place] [address] END OF REPORT
[2020-01-04 21:46] VITALS: BP 148/67
[2020-01-05 06:53] LABS: BASOPHILS 0.4 % (0-2); EOSINOPHILS 5.3 % (0-7); HEMATOCRIT 32.2 % (36.0-48.0); HEMOGLOBIN 9.5 g/dL (12-16); LYMPHOCYTES 21.5 % (15-50); MCH 22.9 pg (26.0-34.0); MCHC 29.5 g/dL (31.0-37.0); MCV 77.6 fL (80.0-100.0); MEAN PLATELET VOLUME 9.2 fL (7.4-10.4); NEUTROPHILS 60.8 % (40-80); PLATELET COUNT 289 10x3/uL (130-400); RBC 4.15 10x6/uL (4.00-5.40); RDW 15.3 % (11.5-14.5); WBC 5.1 10x3/uL (4.8-10.8)
[2020-01-05 07:07] LABS: CALCIUM 8.9 mg/dL (8.5-10.1); CARBON DIOXIDE 24.4 mmol/L (21.0-32.0); CREATININE - SERUM 1.4 mg/dL (0.6-1.3); POTASSIUM - SERUM 4.4 mmol/L (3.5-5.1)
--- NOTE | 2020-01-05 07:24 | NUR ---
PT ALERT/ORIENTED, SITTING IN EBD WATCHING T/V. NO COMPALITNS RO CONCENRS AT THIS TIME. CL IN REACH, SRX2, NO VISITORS @ BEDSIDE.
--- NOTE | 2020-01-05 19:44 | NUR ---
RECEIVED SITTING UP ON SIDE OF BED. ALERT AND ORIENTED X4. UP AD NAHEED TO B/R. LOWER EXTREMITIES SWATI WITH SCABED AREA AND DRY AND FLAKEY. IV TO LT FA AND RT CHECKED FOR PATENCY AND SL. DENIES AN Y NEEDS AT THIS TIME.
[2020-01-05 22:34] VITALS: BP 138/63
[2020-01-06 05:56] LABS: BASOPHILS 0.4 % (0-2); EOSINOPHILS 6.7 % (0-7); HEMATOCRIT 33.9 % (36.0-48.0); HEMOGLOBIN 9.9 g/dL (12-16); IMMATURE GRANULOCYTES 0.2 % (0-5); LYMPHOCYTES 20.3 % (15-50); MCH 22.8 pg (26.0-34.0); MCHC 29.2 g/dL (31.0-37.0); MCV 77.9 fL (80.0-100.0); MEAN PLATELET VOLUME 9.9 fL (7.4-10.4); MONOCYTES 12.2 % (2-11); NEUTROPHILS 60.2 % (40-80); PLATELET COUNT 339 10x3/uL (130-400); RBC 4.35 10x6/uL (4.00-5.40); RDW 15.3 % (11.5-14.5); WBC 4.5 10x3/uL (4.8-10.8)
[2020-01-06 06:11] LABS: CALCIUM 8.8 mg/dL (8.5-10.1); CARBON DIOXIDE 23.4 mmol/L (21.0-32.0); CREATININE - SERUM 1.6 mg/dL (0.6-1.3); POTASSIUM - SERUM 4.4 mmol/L (3.5-5.1)
--- NOTE | 2020-01-06 08:37 | NUR ---
PT ALERT AND ORIENTED, SITTING UP IN BED WAITING FOR BREAKFAST TRAY. NO COMPLAINTS OR CONCERNS AT THSI TIME. UNABLE TO GO INTO PTS ROOM D/T THE FACT I AM CURRENTLY WAITING ON GOGGLES AND DO NOT HAVE APPROPRIATE PPE. CALLED MOLDER APPRENTICE AND INFORMED HER. CL IN REACH, SRX2.
--- NOTE | 2020-01-06 10:43 | NUR ---
PT HAD ACCIDENT GOING TO THE BATHROOM. B/M ON THE FLOOR. CHUNCKY. CLEANED AND MOPPED. GAVE PT BEDSISDE BATH, CHANGED LINNENS. ADMINISTERED MEDICATIONS. NO COMPLAINTS OR CONCERNS AT THIS TIME. CL IN REACH, SRX2.
[2020-01-06 16:30] VITALS: BP 136/62
--- NOTE | 2020-01-06 17:26 | NUR ---
I have reviewed this patient and I concur with the Shift Assessment completed by the Licensed Practical Nurse today this shift.
--- NOTE | 2020-01-06 17:43 | EC ---
PATIENT:TAMIKA MERINO DATE OF SERVICE: 01/04/20 SEX: F MEDICAL RECORD: [id number] DATE OF : [birth year] LOCATION:D.M2 D.213 AGE OF PATIENT: 74 ADMISSION DATE: 01/04/20 REFERRING PHYSICIAN: INTERPRETING PHYSICIAN: IWONA MEJIA MD ECHOCARDIOGRAM REPORT ECHO CHARGES 4 ECHO COMPLETE Date: 01/04/20 CLINICAL DIAGNOSIS: CHF ECHOCARDIOGRAPHIC MEASUREMENTS (adult normal given) AC root (d.<3.7cm) 3.0 cm LV Septum d (<1.2 cm> 1.2 cm Valve Excursion 0.9 cm LV Septum (systole) 1.3 cm Left Atria (s.<4.0cm> 3.4 cm LVPW d(<1.2cm) 1.3 cm RV (d.<2.3cm) 2.8 cm LVPW (sytole) 1.4 cm LV diastole(<5.6CM) 5.4 cm MV E-F(>70mm/sec) cm LV systole 4.1 cm LVOT Diameter 1.2 cm MV exc.(>10mm) cm Est.ejection fraction (50-75%) % DOPPLER: LVIT cm/sec A 89 cm/sec E 89 cm/sec LA cm/sec RVSP 23.4 mmHg LVOT 135 cm/sec AOP1/2T m/s Asc. Ao 137 cm/sec RVOT 89 cm/sec RA cm/sec PA 113 cm/sec AV Gradient Peak 7.5 mmHg AV Mean 5.3 mmHg AV Area 1.0 cm MV Gradient Peak 4.0 mmHg MV Mean 2.6 mmHg MV Area cm COMMENTS: Electrical Engineering Technician: Veronique [facility] Security Program Manager: 4 Dr. Mejia TAPE# PACS Pericardial Effusion N DATE OF SERVICE: 01/04/2020 PROCEDURE: Echocardiogram. FINDINGS: LEFT VENTRICLE: Ejection fraction 55%. The patient has moderate concentric left ventricular hypertrophy. Inflow characteristics consistent with diastolic dysfunction. RIGHT VENTRICLE: Normal size and function. LEFT ATRIUM: Normal size and function. ECHOCARDIOGRAM REPORT [id number] TAMIKA MERINO AORTIC VALVE: Sclerotic, potential stenosis. There is decreased cuspal separation. Planimetry of the valve was difficult to visualize and we may have underestimated the Doppler signal. MITRAL VALVE: Shows mild to moderate mitral regurgitation. TRICUSPID VALVE: Has trace tricuspid regurgitation. The RVSP is normal. RIGHT ATRIUM: Normal size and function. PULMONIC VALVE: Normal. PERICARDIUM: Shows no effusion. IMPRESSION: The patient has evidence of left ventricular hypertrophy and hypertensive heart disease. We did not demonstrate significant aortic stenosis, but there is the suggestion of aortic stenosis by 2D evaluation. Depending on clinical situation further evaluation may be helpful such as catheter-directed pressure gradients and possibly a transesophageal echocardiogram depending on the clinical situation. TRANSINT:[id number] Voice Confirmation ID: [id number] DOCUMENT ID: [id number] IWONA MEJIA MD at 1743 CC: [id number] DICTATION DATE: 01/06/20 1109 FAMILY LAW SPECIALIST: 01/06/20 1324 ADM IN [facility] [id number] [place] [address]
--- NOTE | 2020-01-06 19:37 | NUR ---
RECEIVED SITTING UP ON SIDE OF BED. ALERT AND ORIENTED X4. UP AD NAHEED. IV TO RT FA WITH VANCOMYCIN INFUSING. DENIES ANY NEEDS AT THIS TIME.
--- NOTE | 2020-01-06 21:04 | NUR ---
IV RESTARTED TO LEFT HAND ATTEMPTS X2. MERREM INFUSING AT THIS TIME.
[2020-01-07 05:49] LABS: BASOPHILS 0.4 % (0-2); EOSINOPHILS 6.7 % (0-7); HEMATOCRIT 32.3 % (36.0-48.0); HEMOGLOBIN 9.2 g/dL (12-16); IMMATURE GRANULOCYTES 0.4 % (0-5); LYMPHOCYTES 18.4 % (15-50); MCH 22.3 pg (26.0-34.0); MCHC 28.5 g/dL (31.0-37.0); MCV 78.4 fL (80.0-100.0); MEAN PLATELET VOLUME 10.1 fL (7.4-10.4); MONOCYTES 12.8 % (2-11); NEUTROPHILS 61.3 % (40-80); PLATELET COUNT 309 10x3/uL (130-400); RBC 4.12 10x6/uL (4.00-5.40); RDW 15.3 % (11.5-14.5); WBC 4.8 10x3/uL (4.8-10.8)
[2020-01-07 05:51] LABS: CALCIUM 8.7 mg/dL (8.5-10.1); CARBON DIOXIDE 22.6 mmol/L (21.0-32.0); CREATININE - SERUM 1.2 mg/dL (0.6-1.3); POTASSIUM - SERUM 4.6 mmol/L (3.5-5.1)
--- NOTE | 2020-01-07 08:47 | NUR ---
PT AWAKE AND ORIENTED, SITTING UP IN BED WAITING ON BREAKFAST TRAY WHEN I ENTERED. STATES SHE'S FEELING MUCH BETTER TODAY AND HER LEGS DON'T CURRENTLY HURT. PT IS EXTREMELY TALKATIVE, OBVIOUSLY LONELY AND STRUGGLING WITH THE ISOLATION. MEDS ADMINISTERED, I/V CHECKED AND WNL. NO COMPLAINTS OR CONCERNS THIS A.M. NO FURTHER DIARHEA AFTER YESTERDAY MORNING. CL IN REACH, SRX2.
--- NOTE | 2020-01-07 11:42 | NUR ---
I have reviewed this patient and I concur with the Shift Assessment completed by the Licensed Practical Nurse today this shift.
[2020-01-07 12:00] VITALS: BP 140/72
[2020-01-07 16:11] VITALS: BP 121/60
[2020-01-07 20:16] VITALS: BP 126/67
--- NOTE | 2020-01-08 03:34 | NUR ---
I have reviewed this patient and I concur with the Shift Assessment completed by the Licensed Practical Nurse today this shift.
[2020-01-08 08:22] LABS: BASOPHILS 0.9 % (0-2); EOSINOPHILS 7.8 % (0-7); HEMATOCRIT 32.5 % (36.0-48.0); HEMOGLOBIN 9.6 g/dL (12-16); IMMATURE GRANULOCYTES 0.2 % (0-5); LYMPHOCYTES 19.6 % (15-50); MCH 23.1 pg (26.0-34.0); MCHC 29.5 g/dL (31.0-37.0); MCV 78.3 fL (80.0-100.0); MONOCYTES 8.5 % (2-11); PLATELET COUNT 297 10x3/uL (130-400); RBC 4.15 10x6/uL (4.00-5.40); RDW 15.3 % (11.5-14.5); WBC 4.2 10x3/uL (4.8-10.8)
[2020-01-08 08:28] LABS: ANION GAP 13.8 mmol/L (8-16); CALCIUM 8.9 mg/dL (8.5-10.1); CARBON DIOXIDE 23.7 mmol/L (21.0-32.0); CREATININE - SERUM 1.1 mg/dL (0.6-1.3); POTASSIUM - SERUM 4.5 mmol/L (3.5-5.1); VANCOMYCIN - RANDOM 22.4 ug/mL (10.0-20.0)
--- NOTE | 2020-01-08 12:59 | NUR ---
Nutrition Follow-up: Nursing reports no issues with PO intake. Noted Covid-19 negative. Diet: Diabetic No new wt; last wt: 230# (01/03) Labs noted: Glu 186 Meds noted: NS @ 75, Protonix, Humalog -Encourage PO intake and honor food preferences within diet restrictions. -Need new wt; noted daily wts ordered. -RD following.
--- NOTE | 2020-01-08 14:09 | NUR ---
PATIENT IS IN ROOM 2103 NOW. SHE WAS IN ROOM 2131 HOWEVER SHE IS NEGATIVE FOR COVID19 SO THEY MOVED HER. SHE IS ALERT AND ORIENTED AND DENIES ANY NEEDS AT THIS TIME. SHE REPORTS THAT THE SORES ON HER LEGS, MAINLY BELOW THE KNEE, SHINS, ARE HEALING AND DRYING UP. THE REDNESS IS RECEDING. SHE IS VERY TALKATIVE. IV IN LEFT HAND IS INFUSING.
--- NOTE | 2020-01-08 15:55 | NUR ---
PATIENT IS RESTING QUIETLY AND DENIES ANY NEEDS AT THIS TIME.
--- NOTE | 2020-01-08 16:31 | NUR ---
Rehab Note- Acute Inpatient Rehab prescreen order received. The patient has had a PT Eval & is recommending home with home health. Will follow at this time for decline in physical mobility or if in need of ST & OT services in acute inpatient rehab. Thank you for this referral! Nena Chin RN Clinical Liaison, [facility]
[2020-01-08 16:55] VITALS: BP 180/67
--- NOTE | 2020-01-08 20:40 | NUR ---
PT SITTING UP ON SIDE OF BED AWAKE ALERT AND ORIENTED x4. NO SIGNS OR SYMPTOMS OF DISTRESS NOTED. RESPIRATIONS EVEN AND UNLABORED. ASSIST PT TO RESTROOM AND BACK TO BED USING WALKER. PT HAS FALL RISK SOCKS ON. NO COMPLAINTS AT THIS TIME. CALL LIGHT WITH IN REACH. WILL CONTINUE TO MONITOR
[2020-01-08 20:45] VITALS: BP 201/89
[2020-01-08 23:45] VITALS: BP 164/65
--- NOTE | 2020-01-09 01:03 | NUR ---
PT SITTING UP ON SIDE OF BED AWAKE ALERT AND ORIENTED x4. NO SIGNS OR SYMPTOMS OF DISTRESS NOTED. RESPIRATIONS EVEN AND UNLABORED. ASSIST PT TO RESTROOM WITH WALKER. PT TOLERATED WELL. FALL SOCKS ARE ON. CALL LIIGHTY WITH IN REACH BEDS IN LOWEST POSITON. PT ENCOURAGED TO CALL FOR HELP WHEN GETTING IN AND OUT OF BED. WILL CONTINUE TO MONITOR.
--- NOTE | 2020-01-09 01:09 | NUR ---
PT LYING IN BED RESTING WITH EYES CLOSED. NO SIGNS OR SYMPTOMS OF DISTRESS. BEDRAILS x2. PT ENCOURAGED TO CALL FOR HELP WHEN NEEDED. CALL LIGHT WITH IN REACH. NO COMPLAINTS AT THIS TIME. WILL CONTINUE TO MONITOR
--- NOTE | 2020-01-09 01:11 | NUR ---
PRN SINEQUAN GIVEN FOR SLEEP PER PT REQUEST. CALL LIGHT WITH IN REACH PT INSTRUCTED TO CALL FOR HELP WHEN GETTING IN AND OUT OF BED. WILL CONTINUE TO MONITOR
[2020-01-09 05:20] VITALS: BP 165/69
--- NOTE | 2020-01-09 05:23 | NUR ---
I have reviewed this patient and I concur with the Shift Assessment completed by the Licensed Practical Nurse today this shift.
--- NOTE | 2020-01-09 06:05 | NUR ---
ASSIST PT TO RESTROOM. NO SIGNS OF DISTRESS NOTED CALL LIGHT WITH IN REACH. PT ENCOURAGED TO CALL FOR HELP WHEN GETTING IN AND OUT OF BED. WILL CONTINUE TO MONITOR
[2020-01-09 06:08] LABS: BASOPHILS 0.5 % (0-2); HEMATOCRIT 33.5 % (36.0-48.0); HEMOGLOBIN 9.5 g/dL (12-16); IMMATURE GRANULOCYTES 0.2 % (0-5); LYMPHOCYTES 23.7 % (15-50); MCH 22.6 pg (26.0-34.0); MCHC 28.4 g/dL (31.0-37.0); MCV 79.6 fL (80.0-100.0); MEAN PLATELET VOLUME 9.6 fL (7.4-10.4); MONOCYTES 13.5 % (2-11); NEUTROPHILS 55.1 % (40-80); PLATELET COUNT 312 10x3/uL (130-400); RBC 4.21 10x6/uL (4.00-5.40); RDW 15.6 % (11.5-14.5); WBC 4.3 10x3/uL (4.8-10.8)
[2020-01-09 06:27] LABS: ANION GAP 12.5 mmol/L (8-16); CALCIUM 9.1 mg/dL (8.5-10.1); CARBON DIOXIDE 22.8 mmol/L (21.0-32.0); POTASSIUM - SERUM 4.3 mmol/L (3.5-5.1)
--- NOTE | 2020-01-09 08:07 | NUR ---
RECIEVED REPORT. PATIENT IS UP TO BATHROOM WITH WALKER. SHE IS ALERT AND ORIENTED AND DENIES ANY NEEDS AT THIS TIME.
--- NOTE | 2020-01-09 08:09 | NUR ---
PATIENT REPORTS THAT HER IV IS LEAKING. IV IS SALINE LOCKED AT THIS TIME. WILL REMOVE AND RESITE SHORTLY.
[2020-01-09 09:30] VITALS: BP 173/62
--- NOTE | 2020-01-09 10:37 | NUR ---
IV REMOVED FROM LEFT HAND WITH CATHETER INTACT. NEW IV PLACED IN RIGHT HAND, PATIENT TOLERATED. IV FLUIDS INFUSING ORDERED.
--- NOTE | 2020-01-09 13:22 | MORECARE ---
CASE MANAGEMENT DISCHARGE SUMMARY PATIENT: TAMIKA MERINO UNIT: [id number] ADM DATE: 01/04/20 AGE: 74 : [birth year] SEX: F ROOM/BED: D.2124 AUTHOR: LARISSA,DOC PHYSICIAN: REFERRING PHYSICIAN: BRENDA PEREYRA MD DATE OF SERVICE: 01/09/20 Discharge Plan Patient Name: TAMIKA MERINO Facility: [facility]:[place] : 1945 Planned Disposition: Inpatient Rehab Anticipated Discharge Date: 01/09/20 Discharge Date: Expected LOS: 5 Initial Reviewer: [id number] Initial Review Date: 01/04/2020 Generated: 01/09/20 2:21 pm DCP- Discharge Planning Updated by [id number]: Claude Messina on 01/04/20 4:[address] Patient Name: TAMIKA MERINO Admission Status: ER Accout number: [id number] Admission Date: 01-04-2020 : 1945 Admission Diagnosis: Attending: BRENDA PEREYRA Current LOS: 1 Anticipated DC Date: Planned Disposition: Home with Home Health Primary Insurance: MEDICARE A & B PLANNED EXTERNAL PROVIDER: [facility] Discharge Planning Comments: CM ATTEMPTED TO CALL PT SEVERAL TIMES THROUGH THE DAY TO COMPLETE INITIAL ASSESSMENT, PT NOT ANSWERING THE ROOM PHONE. CM CALLED AND SPOKE TO PT'S LISTED EMERGENCY CONTACT, RASHID SHUKLA, , WHO REPORTS BEING PT'S SIGNIFICANT OTHER AND LIVES WITH PT AT HOME. RASHID REPORTS PT LIVING AT HOME INDEPENDENTLY AND HAS [facility] TO BANDANGE PT'S LEG NEEDED. PT HAS A ROLLATOR WALKER WITH NO MEDICAL EQUIPMENT PROVIDER PREFERENCE AND NO OTHER OUTSIDE SERVICES ASSISTING IN THE HOME. CM DISCUSSED AVAILABILITY OF HOME HEALTH, REHAB SERVICES AND MEDICAL EQUIPMENT. RASHID DOES NOT THINK PT WILL H AVE ANY DISCHARGE NEEDS, REPORTS HE WILL PICK PT UP FOR DISCHARGE HOME. CHOICE FOR [facility] COMPLETED. PT'S PLAN IS TO RETURN HOME WITH SIGNFICANT OTHER, RESUMPTION OF [facility]. FAMILY TO TRANSPORT HOME. FOR RESUMPTION OF HOME HEALTH, NOTIFY SAMANTHA AT [phone], FAX DISCHARGE INFORMATION TO [facility] AT [phone]. Soaping Machine Back Tender: Claude Messina DCPIA - Discharge Planning Initial Assessment Updated by [id number]: Claude Messina on 01/04/20 4:53 pm * Is the patient Alert and Oriented? Yes * How many steps to enter\exit or inside your home? RAMP * PCP DR. HEATH * [facility] * Preadmission Environment Home with Family * ADLs Independent * Equipment Rolling Walker * Other Equipment ROLLATOR WALKER, NO MEDICAL EQUIPMENT PROVIDER PREFERENCE * List name and contact numbers for known caregivers / representatives who currently or will assist patient after discharge: RASHID SHUKLA, SIGNIFICANT OTHER, * Verbal permission to speak to the caregivers and representatives has been obtained from the patient. N/A * Community resources currently utilized None * Please name any agencies selected above. NONE * Additional services required to return to the preadmission environment? No * Can the patient safely return to the preadmission environment? Yes * Has this patient been hospitalized within the prior 30 days at any hospital? No Coverage Notice Reviewer: [id number] Mattie Mesisna Notice Issued Date-Time: 01/09/2020 9:55 Notice Type: IM Discharge Notice Notice Delivered To: Patient Relationship to Patient: Supervisor Blood Donor Recruiters Name: Delivery Method: HAND - Hand Delivered Jaquelin Days: Prior Verbal Notification: Recipient Understood Notice: Yes Recipient Signature: Yes Med Rec Note Co-signed by Attending: Coverage Notice Comment: Reviewer: [id number] Mattie Messina Notice Issued Date-Time: 01/09/2020 9:55 Notice Type: Patient Choice Letter Notice Delivered To: Patient Relationship to Patient: Supervisor Blood Donor Recruiters Name: Delivery Method: HAND - Hand Delivered Jaquelin Days: Prior Verbal Notification: Recipient Understood Notice: Yes Recipient Signature: Yes Med Rec Note Co-signed by Attending: Coverage Notice Comment: [facility] OR [facility] Last DP export: 01/04/20 4:02 p Patient Name: TAMIKA MERINO Page [id number] at 1322 All edits/amendments must be made on the electronic document DICTATION DATE: 01/09/20 1321 REFRIGERATED NATIONAL TRUCK DRIVER: DEL 01/09/20 1321 RPT#: [id number] DC DATE: STATUS: ADM IN [facility] [address] [place] [address] END OF REPORT
--- NOTE | 2020-01-09 13:36 | MORECARE ---
CASE MANAGEMENT DISCHARGE SUMMARY PATIENT: TAMIKA MERINO UNIT: [id number] ADM DATE: 01/04/20 AGE: 74 : [birth year] SEX: F ROOM/BED: D.2104 AUTHOR: LARISSA,DOC PHYSICIAN: REFERRING PHYSICIAN: BRENDA PEREYRA MD DATE OF SERVICE: 01/09/20 Discharge Plan Patient Name: TAMIKA MERINO [facility] [facility] 1945 Planned Disposition: Inpatient Rehab Anticipated Discharge Date: 01/09/20 Discharge Date: Expected LOS: 5 Initial Reviewer: [id number] Initial Review Date: 01/04/2020 Generated: 01/09/20 2:35 pm Comments DCP- Discharge Planning Updated by [id number]: Claude Messina on 01/09/20 12:[address] Patient Name: TAMIKA MERINO Encounter No: [id number] : 1945 Primary Insurance: MEDICARE A & B Anticipated DC Date: 01-09-2020 Planned Disposition: Inpatient Rehab External Planned Provider: [facility] INPATIENT RE[facility] DCP follow-up note: CM NOTIFED DURING MULTIDISCIPLINARY TEAM MEETING THAT PT IS STABLE FOR DISCHARGE, [facility] INPATIENT REHAB ADVISED THEY WILL ACCEPT PT TODAY FOR REHAB. PT NOTIFIED, IN AGREEMENT WITH DISCHARGE TO INPATIENT REHAB. IMPORTANT MESSAGE FROM MEDICARE PROVIDED AND EXPLAINED. [facility] INPATIENT REHAB TO CONTACT MED 2 NURSE WITH ROOM NUMBER WHEN READY TO ACCEPT PT AND NURSE REPORT. GRISELDA Che DCP- Discharge Planning Updated by [id number]: Claude Messina on 01/04/20 4:[address] Patient Name: TAMIKA MERINO Admission Status: ER Accout number: [id number] Admission Date: 01-04-2020 : 1945 Admission Diagnosis: Attending: BRENDA PEREYRA Current LOS: 1 Anticipated DC Date: Planned Disposition: Home with Home Health Primary Insurance: MEDICARE A & B PLANNED EXTERNAL PROVIDER: [facility] Discharge Planning Comments: CM ATTEMPTED TO CALL PT SEVERAL TIMES THROUGH THE DAY TO COMPLETE INITIAL ASSESSMENT, PT NOT ANSWERING THE ROOM PHONE. CM CALLED AND SPOKE TO PT'S LISTED EMERGENCY CONTACT, RASHID SHUKLA, , WHO REPORTS BEING PT'S SIGNIFICANT OTHER AND LIVES WITH PT AT HOME. RASHID REPORTS PT LIVING AT HOME INDEPENDENTLY AND HAS [facility] TO BANDANGE PT'S LEG NEEDED. PT HAS A ROLLATOR WALKER WITH NO MEDICAL EQUIPMENT PROVIDER PREFERENCE AND NO OTHER OUTSIDE SERVICES ASSISTING IN THE HOME. CM DISCUSSED AVAILABILITY OF HOME HEALTH, REHAB SERVICES AND MEDICAL EQUIPMENT. RASHID DOES NOT THINK PT WILL H AVE ANY DISCHARGE NEEDS, REPORTS HE WILL PICK PT UP FOR DISCHARGE HOME. CHOICE FOR [facility] COMPLETED. PT'S PLAN IS TO RETURN HOME WITH SIGNFICANT OTHER, RESUMPTION OF [facility]. FAMILY TO TRANSPORT HOME. FOR RESUMPTION OF HOME HEALTH, NOTIFY [facility] AT [phone], FAX DISCHARGE INFORMATION TO [facility] AT [phone]. Velvet Steamer: Claude Messina DCPIA - Discharge Planning Initial Assessment Updated by [id number]: Claude Messina on 01/04/20 4:53 pm * Is the patient Alert and Oriented? Yes * How many steps to enter\exit or inside your home? RAMP * PCP DR. HEATH * [facility] * Preadmission Environment Home with Family * ADLs Independent * Equipment Rolling Walker * Other Equipment ROLLATOR WALKER, NO MEDICAL EQUIPMENT PROVIDER PREFERENCE * List name and contact numbers for known caregivers / representatives who currently or will assist patient after discharge: RASHID SHUKLA, SIGNIFICANT OTHER, * Verbal permission to speak to the caregivers and representatives has been obtained from the patient. N/A * Community resources currently utilized None * Please name any agencies selected above. NONE * Additional services required to return to the preadmission environment? No * Can the patient safely return to the preadmission environment? Yes * Has this patient been hospitalized within the prior 30 days at any hospital? No Coverage Notice Reviewer: [id number] Mattie Messina Notice Issued Date-Time: 01/09/2020 9:55 Notice Type: IM Discharge Notice Notice Delivered To: Patient Relationship to Patient: Exam Proctor Name: Delivery Method: HAND - Hand Delivered Jaquelin Days: Prior Verbal Notification: Recipient Understood Notice: Yes Recipient Signature: Yes Med Rec Note Co-signed by Attending: Coverage Notice Comment: Reviewer: [id number] Mattie Messina Notice Issued Date-Time: 01/09/2020 9:55 Notice Type: Patient Choice Letter Notice Delivered To: Patient Relationship to Patient: Exam Proctor Name: Delivery Method: HAND - Hand Delivered Jaquelin Days: Prior Verbal Notification: Recipient Understood Notice: Yes Recipient Signature: Yes Med Rec Note Co-signed by Attending: Coverage Notice Comment: [facility] OR [facility] Last DP export: 01/09/20 12:22 pm Patient Name: TAMIKA MERINO Page [phone] at 1336 All edits/amendments must be made on the electronic document DICTATION DATE: 01/09/201334 DRUG ABUSE PROGRAM COORDINATOR: DEL 01/09/20 1335 RPT#: [id number] DC DATE: STATUS: ADM IN [facility] [address] [place] [address] END OF REPORT
[2020-01-09 13:44] VITALS: BP 151/60
[2020-01-09] MEDS ORDERED: Vancomycin 1.25 GM/N IV (14:05)
== END 2020-01-09 20:25 | DRG 602 ==
LOC: D.ER 05:06 → D.M2 06:44 → D.SDCHOLD 01-09 14:15 → D.M2 01-09 20:25
PROVIDERS: Emergency Medicine; ADMIT Internal Medicine Nephrology; ATTEND Internal Medicine Nephrology
DX: L03.116 Cellulitis of left lower limb (principal); I50.23 Acute on chronic systolic (congestive) heart failure; N39.0 Urinary tract infection, site not specified; E87.1 Hypo-osmolality and hyponatremia; N17.9 Acute kidney failure, unspecified; L03.115 Cellulitis of right lower limb; I11.0 Hypertensive heart disease with heart failure; E11.9 Type 2 diabetes mellitus without complications; E03.9 Hypothyroidism, unspecified; D50.9 Iron deficiency anemia, unspecified; Z03.818 Encounter for observation for suspected exposure to other biological agents ruled out; I08.3 Combined rheumatic disorders of mitral, aortic and tricuspid valves

== ENCOUNTER 2020-01-09 17:20 | Inpatient (IN) | payer MEDICARE, BC ==
[~2020-01-09] VITALS: Ht 167.6 cm; Wt 103.4 kg
[~2020-01-09 17:20] MED LIST changes: +BENICAR HCT 401 EAC1 PO; +DOXEPIN HCL10 MG PO; +GABAPENTIN100 MG PO; +NEXIUM20 MG PO; +NOVOLIN 70/30 110 ML SC; +Vancomycin 1.25 GM/N IV
--- NOTE | 2020-01-09 20:33 | NUR ---
RECEIVED PT TO FLOOR FROM ACUTE CARE VIA W/C ACCOMPANIED BY HOSPITAL STAFF. PT ALERT AND ORIENTED X4. RIGHT HAND SL WITHOUT REDNESS OR SWELLING. DRESSING C/D/I. SWAB CAP INTACT. DENIES ANY NEEDS OR PAIN. ORIENTATED TO UNIT, ROOM, RESTROOM, AND FUNCTIONS OF REMOTE. NO CONCERNS VOICED. VS STABLE. CALL LIGHT AND WATER WITHIN REACH. BED ALARM ON. CPOC
--- NOTE | 2020-01-09 21:20 | NUR ---
PT REFUSED TO HAVE BED ALARM AND STATED SHE WANTED TO BE ABLE TO GO TO RESTROOM WITHOUT ASSISTANCE. EDUCATED PT FALL PREVENTION AND USING CALL LIGHT FOR ASSISTANCE. PT REQUESTED TO SIGN BED ALARM WAIVER. BED WAIVER SIGNED AND IN CHART.
[2020-01-09 22:53] VITALS: BP 160/65; BMI 36.8
--- NOTE | 2020-01-09 23:15 | NUR ---
PT LYING IN BED WATCHING TV. DENIES ANY NEEDS OR PAIN. NO SIGNS OF ACUTE DISTRESS NOTED. CALL LIGHT WITHIN REACH. CPOC
--- NOTE | 2020-01-10 03:15 | NUR ---
PT LYING IN BED SUPINE EYES CLOSED RESTING COMFORTABLY. RR EVEN AND UNLABORED. CALL LIGHT WITHIN REACH. FALL PRECAUTIONS IN PLACE. CPOC
[2020-01-10 05:49] LABS: BASOPHILS 0.7 % (0-2); EOSINOPHILS 7.6 % (0-7); HEMATOCRIT 31.9 % (36.0-48.0); HEMOGLOBIN 9.3 g/dL (12-16); IMMATURE GRANULOCYTES 0.7 % (0-5); LYMPHOCYTES 22.6 % (15-50); MCH 23.2 pg (26.0-34.0); MCHC 29.2 g/dL (31.0-37.0); MCV 79.6 fL (80.0-100.0); MEAN PLATELET VOLUME 9.1 fL (7.4-10.4); MONOCYTES 10.8 % (2-11); NEUTROPHILS 57.6 % (40-80); PLATELET COUNT 290 10x3/uL (130-400); RBC 4.01 10x6/uL (4.00-5.40); RDW 15.9 % (11.5-14.5); WBC 4.6 10x3/uL (4.8-10.8)
[2020-01-10 06:04] LABS: CALCIUM 8.9 mg/dL (8.5-10.1); CARBON DIOXIDE 22.6 mmol/L (21.0-32.0); CREATININE - SERUM 1.1 mg/dL (0.6-1.3); POTASSIUM - SERUM 4.6 mmol/L (3.5-5.1)
[2020-01-10 07:58] VITALS: BP 139/63
--- NOTE | 2020-01-10 09:10 | NUR ---
PT AM MEDS ADMINISTERED. PT DENIES NEEDS. WCTM.
--- NOTE | 2020-01-10 12:22 | NUR ---
PATIENT ADMITTED TO REHAB FROM ACUTE FLOOR. DR. HEATH IS HER PCP AND SHE IS A CLIENT OF [facility]. DME AT HOME IS A ROLLING WALKER. DISCHARGE PLANS ARE FOR HER TO RETURN HOME WITH HER S/O, RASHID. WILL CONTINUE TO FOLLOW WITH PATIENT.
[2020-01-10 12:32] VITALS: Ht 167.6 cm; Wt 103.4 kg
--- NOTE | 2020-01-10 18:55 | NUR ---
BEDSIDE REPORT COMPLETE. PT SITTING UP ON SIDE OF BED. ALERT AND ORIENTED X4. DENIES ANY NEEDS OR PAIN. NO SIGNS OF ACUTE DISTRESS NOTED. RIGHT HAND SL WITHOUT REDNESS OR SWELLING. DRESSING C/D/I. CALL LIGHT AND WATER WITHIN REACH. BED ALARM WAIVER ON FILE. CPOC
[2020-01-10 20:56] VITALS: BP 122/84
--- NOTE | 2020-01-11 00:18 | NUR ---
PT LYING IN BED EYES CLOSED RESTING COMFORTABLY. RR EVEN AND UNLABORED. CALL LIGHT WITHIN REACH. CPOC
--- NOTE | 2020-01-11 04:41 | NUR ---
PT LYING IN BED ON LEFT SIDE EYES CLOSED RESTING COMFORTABLY. RR EVEN AND UNLABORED. CALL LIGHT WITHIN REACH. CPOC
[2020-01-11 05:36] LABS: BASOPHILS 0.8 % (0-2); EOSINOPHILS 9.1 % (0-7); HEMATOCRIT 31.3 % (36.0-48.0); IMMATURE GRANULOCYTES 0.4 % (0-5); LYMPHOCYTES 21.7 % (15-50); MCH 23.1 pg (26.0-34.0); MCHC 28.8 g/dL (31.0-37.0); MCV 80.5 fL (80.0-100.0); MEAN PLATELET VOLUME 9.6 fL (7.4-10.4); PLATELET COUNT 292 10x3/uL (130-400); RBC 3.89 10x6/uL (4.00-5.40); RDW 16.7 % (11.5-14.5); WBC 4.9 10x3/uL (4.8-10.8)
[2020-01-11 05:47] LABS: CALCIUM 8.6 mg/dL (8.5-10.1); CARBON DIOXIDE 21.9 mmol/L (21.0-32.0); CREATININE - SERUM 1.2 mg/dL (0.6-1.3); POTASSIUM - SERUM 4.9 mmol/L (3.5-5.1)
[2020-01-11 07:38] VITALS: BP 132/58
--- NOTE | 2020-01-11 08:00 | NUR ---
PT RESTING IN BED WITH EYES OPEN CALL LIGHT IN REACH WILL MONITER
--- NOTE | 2020-01-11 08:00 | NUR ---
PT RESTING IN BED WITH EYES OPEN CALL LIGHT IN REACH EATING BREAKFAST TOLERATING WELL WILL MONITER
--- NOTE | 2020-01-11 20:10 | NUR ---
AWAKE AND ALERT. UP AD NAHEED TO BATHOOM. RESPIRAITONS UNLABORED. RIGHT HAND SALINE LOCK INTACT WITH NO SIGNS OF INFILTRATION. REDNESS AND EDEMA NOTED BILATERALLY IN LOWER EXTREMITIES WITH HX OF CELLULITIS. NO ACUTE DISTRESS NOTED. CALL LIGHT IN REACH.
[2020-01-11 21:45] VITALS: BP 133/60
--- NOTE | 2020-01-12 02:09 | NUR ---
CONTINUES SLEEPING WITH RESPIRATIONS UNLABORED. NO DISTRESS NOTED.
--- NOTE | 2020-01-12 04:52 | NUR ---
QUIET HOURS. NO ACUTE CHANGES IN CONDITION THIS SHIFT. RESTING IN BED WITH NO DISTRESS NOTED.
--- NOTE | 2020-01-12 07:30 | NUR ---
A/A/OX4. DENIES ANY PAIN OR DISCOMFORT AND NO REQUESTS VOICED. RESP EVEN AND UNLABORED ON RA. SL PATENT TO RIGHT HAND WITHOUT REDNESS OR EDEMA NOTED AT SITE. SIDERAILS UP X 2, CALL LIGHT AND WATER IN REACH AND BED IN LOW LOCKED POSITION. WILL CONTINUE POC
[2020-01-12 10:57] VITALS: BP 139/90
--- NOTE | 2020-01-12 13:00 | NUR ---
I have reviewed this patient and I concur with the Shift Assessment completed by the Licensed Practical Nurse today this shift.
[2020-01-12 21:51] VITALS: BP 134/57
--- NOTE | 2020-01-13 01:26 | NUR ---
I have reviewed this patient and I concur with the Shift Assessment completed by the Licensed Practical Nurse today this shift.
--- NOTE | 2020-01-13 07:30 | NUR ---
A/A/OX4. DENIES ANY PAIN OR DISCOMFORT AND VOICES NO REQUESTS. RESP EVEN AND UNLABORED ON RA. SL PATENT TO RIGHT WRIST WITHOUT REDNESS OR EDEMA AT SITE. SIDERAILS UP X 2, CALL LIGHT AND WATER WITHIN REACH, BED IN LOW LOCKED POSITION. WILL CONTINUE POC.
[2020-01-13 08:03] VITALS: BP 139/85
--- NOTE | 2020-01-13 13:00 | NUR ---
I have reviewed this patient and I concur with the Shift Assessment completed by the Licensed Practical Nurse today this shift.
--- NOTE | 2020-01-13 18:20 | NUR ---
IV INFILTRATED DC'D AND RESTARTED IN LEFT HAND WITH 22 G X 1 ATTEMPT. PT TOLERATED WELL.
--- NOTE | 2020-01-13 19:15 | NUR ---
SITTING UP ON SIDE OF BED. ALERT AND ORIENTED X4. RESP EVEN AND NONLABORED. SCABS NOTED TO BLE AND REDNESS. BRUISES NOTED TO BUE. SALINE LOCK NOTED TO LT HAND. AMB WITH WALKER. DENIES PAIN. NO DISTRESS. CL IN REACH. HAS SIGNED PEGGY WAIVER.
[2020-01-13 19:45] VITALS: BP 145/49
--- NOTE | 2020-01-14 00:14 | NUR ---
LYING IN BED WITH EYES CLOSED. RESP EVEN AND NONLABORED. NO DISTRESS. CL IN REACH.
--- NOTE | 2020-01-14 03:05 | NUR ---
LYING IN BED WITH EYES CLOSED. RESP EVEN AND NONLABORED. NO DISTRESS. CL IN REACH.
[2020-01-14 06:14] LABS: BASOPHILS 0.4 % (0-2); EOSINOPHILS 8.4 % (0-7); HEMATOCRIT 32.9 % (36.0-48.0); HEMOGLOBIN 9.5 g/dL (12-16); IMMATURE GRANULOCYTES 0.4 % (0-5); LYMPHOCYTES 19.6 % (15-50); MCH 23.2 pg (26.0-34.0); MCHC 28.9 g/dL (31.0-37.0); MCV 80.4 fL (80.0-100.0); MEAN PLATELET VOLUME 9.7 fL (7.4-10.4); MONOCYTES 10.8 % (2-11); NEUTROPHILS 60.4 % (40-80); PLATELET COUNT 273 10x3/uL (130-400); RBC 4.09 10x6/uL (4.00-5.40); WBC 5.1 10x3/uL (4.8-10.8)
[2020-01-14 06:29] LABS: CALCIUM 8.8 mg/dL (8.5-10.1); CARBON DIOXIDE 22.7 mmol/L (21.0-32.0); CREATININE - SERUM 1.1 mg/dL (0.6-1.3); POTASSIUM - SERUM 4.7 mmol/L (3.5-5.1)
[2020-01-14 07:54] VITALS: BP 153/49
--- NOTE | 2020-01-14 08:00 | NUR ---
PATIENT IS ALERT/ORIENT. SITTING UP IN BED TO EAT BREAKFAST. CALL LIGHT WITHIN REACH. WILL CONTINUE WITH PLAN OF CARE
--- NOTE | 2020-01-14 20:00 | NUR ---
PT IS RESTING IN BED WITH EYES OPEN. ALERT AND ORIENTED X 3. DENIES ACUTE PAIN OR DISCOMFORT AT THIS TIME. NO NEEDS VOICED. DARK RED CELLULITIS NOTED TO BILATERAL LOWER LEGS. PT STATES IT IS MUCH BETTER, AND DOESNT HURT ANYMORE. SR'S ARE UP X 2 IN BED. CALL LIGHT AND BEDSIDE TABLE ARE WITHIN EASY REACH.
--- NOTE | 2020-01-14 22:36 | NUR ---
PT IS RESTING IN BED WITH EYES OPEN. LIGHTS OUT AT THIS TIME. NO NEEDS VOICED.
--- NOTE | 2020-01-15 03:06 | NUR ---
I have reviewed this patient and I concur with the Shift Assessment completed by the Licensed Practical Nurse today this shift.
--- NOTE | 2020-01-15 05:40 | NUR ---
PT RESTING IN BED WITH EYES OPEN. NO NEEDS VOICED.
[2020-01-15 08:00] VITALS: BP 156/88
--- NOTE | 2020-01-15 08:00 | NUR ---
PT RESTING IN BED WITH EYES OPEN CALL LIGHT IN REACH NO PROBLEMS WILL MONITER
--- NOTE | 2020-01-15 13:06 | NUR ---
Nutrition follow-up: Diet: ADA consistent CHO PO intake 75-100% of most meals Labs reviewed; glucose under fair control Wt: 228# PO intake remains good at this time RDN following.
--- NOTE | 2020-01-15 19:15 | NUR ---
PT SITTING ON SIDE OF BED WATCHING TV. CL IN REACH. DENIES NEEDS OR PAIN AT THIS TIME. BED IN LOW SIDE RAILS X2. A/O X4. RESP EVEN AND UNLABORED. LUNGS CLEAR. BOWEL ACTIVE X4. BED ALARM WAIVER IN CHART. WILL CONTINUE TO MONITOR
[2020-01-15 20:51] VITALS: BP 124/40
--- NOTE | 2020-01-16 03:50 | NUR ---
I have reviewed this patient and I concur with the Shift Assessment completed by the Licensed Practical Nurse today this shift.
[2020-01-16 07:12] LABS: BASOPHILS 0.8 % (0-2); EOSINOPHILS 10.6 % (0-7); HEMATOCRIT 33.3 % (36.0-48.0); HEMOGLOBIN 9.6 g/dL (12-16); IMMATURE GRANULOCYTES 0.8 % (0-5); LYMPHOCYTES 23.3 % (15-50); MCH 23.5 pg (26.0-34.0); MCHC 28.8 g/dL (31.0-37.0); MCV 81.6 fL (80.0-100.0); MEAN PLATELET VOLUME 9.9 fL (7.4-10.4); MONOCYTES 10.6 % (2-11); NEUTROPHILS 53.9 % (40-80); PLATELET COUNT 259 10x3/uL (130-400); RBC 4.08 10x6/uL (4.00-5.40); RDW 18.5 % (11.5-14.5); WBC 4.7 10x3/uL (4.8-10.8)
[2020-01-16 07:29] LABS: ANION GAP 14.1 mmol/L (8-16); CALCIUM 8.6 mg/dL (8.5-10.1); CARBON DIOXIDE 20.9 mmol/L (21.0-32.0); CREATININE - SERUM 1.2 mg/dL (0.6-1.3)
--- NOTE | 2020-01-16 07:30 | NUR ---
A/A/OX4. DENIES ANY PAIN OR DISCOMFORT AND NO REQUESTS VOICED. SITTING UP ON SIDE OF BED. CALL LIGHT IN REACH AND BED IN LOW LOCKED POSITION. NO APPARENT NEW PROBLEMS.
[2020-01-16 08:56] VITALS: BP 143/59
--- NOTE | 2020-01-16 15:36 | NUR ---
CARE TEAM MEETING: PATIENT DOING VERY WELL IN THERAPY. TENTAIVE DISCHARGE DATE IS 01/18/20. WILL CONTINUE TO FOLLOW WITH PATIENT.
[2020-01-16 20:09] VITALS: BP 147/55
--- NOTE | 2020-01-16 20:11 | NUR ---
PT LYING IN BED AWAKE ALERT AND ORIENTED x4. NO SIGNS OF DISTRESS NOTED. CALL LIGHT WITH IN REACH. PT HAS NO COMPLAINTS AT THIS TIME. RESPIRATIONS EVEN AND UNLABORED. WILL CONTINUE TO MONITOR
--- NOTE | 2020-01-17 01:40 | NUR ---
BED LINEN CHANGED. PT COMPLAINED OF NIGHT SWEATS. NO SIGNS OF DISTRESS NOTED. CALL LIGHT WITH IN REACH. WILL CONTINUE TO MONITOR.
--- NOTE | 2020-01-17 03:12 | NUR ---
pt lying in bed resting with eyes closed. easily awaken with voice stimulation. no signs of distress noted. call light with in reach. will continue to monitor
--- NOTE | 2020-01-17 06:22 | NUR ---
I have reviewed this patient and I concur with the Shift Assessment completed by the Licensed Practical Nurse today this shift.
--- NOTE | 2020-01-17 08:00 | NUR ---
PT RESTING IN BED WITH EYES OPEN CALL LIGHT IN REACH WILL MONITER
[2020-01-17 08:18] VITALS: BP 141/54
--- NOTE | 2020-01-17 11:00 | NUR ---
I have reviewed this patient and I concur with the Shift Assessment completed by the Licensed Practical Nurse today this shift.
--- NOTE | 2020-01-17 18:17 | NUR ---
PT RESTING IN BED WITH EYES OPEN CALL AYO PHIL WILL MONITER
--- NOTE | 2020-01-17 18:17 | NUR ---
PT RESTING IN BED WITH EYES OPEN CALL LIGHT IN REACH WILL MONITER
--- NOTE | 2020-01-17 18:27 | NUR ---
PT UP IN WHEELCHAIR CALL LIGHT IN REACH WILL MONITER
--- NOTE | 2020-01-17 19:04 | NUR ---
GREETED PATIENT AND INTRODUCED MYSELF HER NURSE. PATIENT IS LAYING IN BED RELAXING AT THIS TIME WATCHING TV. RESPIRATIONS EVEN. NO S/S OF DISTRESS. DENIES ANY NEEDS AT THIS TIME. CALL LIGHT IN REACH.
[2020-01-17 20:00] VITALS: BP 129/60
--- NOTE | 2020-01-18 01:03 | NUR ---
PATIENT RESTING QUIETLY WITH EYES CLOSED. RESPIRATIONS EVEN. NO S/S OF DISTRESS. CALL LIGHT IN REACH.
[2020-01-18 05:50] LABS: BASOPHILS 0.8 % (0-2); EOSINOPHILS 9.4 % (0-7); HEMATOCRIT 35.3 % (36.0-48.0); HEMOGLOBIN 10.2 g/dL (12-16); IMMATURE GRANULOCYTES 0.2 % (0-5); LYMPHOCYTES 21.4 % (15-50); MCH 23.6 pg (26.0-34.0); MCHC 28.9 g/dL (31.0-37.0); MCV 81.7 fL (80.0-100.0); MEAN PLATELET VOLUME 9.6 fL (7.4-10.4); MONOCYTES 12.2 % (2-11); PLATELET COUNT 249 10x3/uL (130-400); RBC 4.32 10x6/uL (4.00-5.40); RDW 18.9 % (11.5-14.5)
[2020-01-18 06:01] LABS: ANION GAP 15.6 mmol/L (8-16); CALCIUM 8.8 mg/dL (8.5-10.1); CARBON DIOXIDE 20.1 mmol/L (21.0-32.0); CREATININE - SERUM 1.4 mg/dL (0.6-1.3); POTASSIUM - SERUM 4.7 mmol/L (3.5-5.1)
[2020-01-18 08:00] VITALS: BP 140/43
--- NOTE | 2020-01-18 08:00 | NUR ---
PT UP IN WHEELCHAIR EATING BREAKFAST TOLERATING WELLL WILL MONITER
--- NOTE | 2020-01-18 09:59 | NUR ---
PATIENT DISCHARGING HOME TODAY WITH FAMILY.[facility] WILL RESUME THERAPY AT HOME. NO NEW DME NEEDED AT THIS TIME. DR. PARSON 01/22/20 @ 9:30.PATIENT CHOICE FORM SIGNED, NO COMPARE DATA REVIEWED PATIENT IS ESTABLISHED WITH [facility]. [facility] FORM SIGNED, EXPLAINED , ONE GIVEN TO PATIENT AND ONE FILED IN CHART. DISCHARGE INSTRUCTIONS FAXED TO PCP, HOME HEALTH AND REVIEWED WITH PATIENT PER PRIMARY NURSE.
[2020-01-18] MEDS ORDERED: ULTRAM50 MG PO (10:03)
--- NOTE | 2020-01-18 11:40 | NUR ---
PT DISCHARGED TO HOME VIA WHEELCHAIR WITH FAMILY MEDS CALLED TO [facility] ON [address]. DISCHARGE SUMMARY AND MEDS REVIEWED WITH PT NO QUESTIONS OR CONCERNS PT TOLERATED DISCHARGE WELL.
--- NOTE | 2020-01-18 14:12 | RHP ---
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 She is complaining of a nonproductive cough, shortness of breath, dyspnea on exertion. She denied any fever or chills. The patient has a chronic rash on her legs and has been seen at the wound clinic at [facility]. The patient did have breath sounds that were diminished bilaterally. She had bilateral edema, bilateral rash. The patient was seen and evaluated, given Lasix. Vital signs were reviewed and she was noted to have 99% on room air. The patient had an x-ray, which showed bibasilar airspace disease consistent with atelectasis or pneumonia. She had a normal VQ scan. Previously, she was living with significant other, was moderately independent with rolling walker for ADLs and mobility. She has had home health coming to address her wounds. Currently, she has had prolonged immobility, progressive generalized weakness, especially in her lower extremities that has affected her tolerance to PT. She is very fatigued, has limited flexion, extension of her lower extremities, proximal muscle strength is decreased. She is mod to max assist for ADLs and mod to max assist for sit to stand and bed to chair. She is highly motivated and has good family support and would like to return home. COMORBIDITIES: Include bilateral lower extremity cellulitis, microcytic anemia, muscle wasting and atrophy, hyperglycemia, [id number] heart failure, electrolyte abnormalities, diabetes, hypothyroidism, dyspnea on exertion, edema, fatigue, weakness. PAST MEDICAL HISTORY: Significant for cataracts, she has got a history of diabetes, thyroid problems, got a history of arthritis. PAST SURGICAL HISTORY: Includes gallbladder surgery and she has some dental extractions done younger in her life. ALLERGIES: KEFLEX, TETANUS. CURRENT MEDICATIONS: Include vancomycin she is on 1.25 grams every 24 hours. She is on hydrochlorothiazide 25 mg daily, Benicar 40 mg daily, potassium 20 mEq daily, Lasix 20 mg daily, Protonix 40 mg daily. She is on a low-resistant sliding scale of Humalog. She is on Synthroid 75 mcg daily. She is on glucose replacement protocol. She is on Neurontin 100 mg t.i.d., Norvasc 5 mg at bedtime, Bactroban 1 application b.i.d., MiraLax 17 g in 8 ounces of water daily, and doxepin at bedtime. HABITS: No alcohol or tobacco use. FAMILY HISTORY: Noncontributory. SOCIAL HISTORY: The patient hopes to return back home and get back to her prior level of functioning. REVIEW OF SYSTEMS: HISTORY AND PHYSICAL [id number] TAMIKA MERINO GENERAL: Does complain of weakness and fatigue. HEENT: Denies cold, cough, or congestion. CARDIOVASCULAR: Denies any chest pain. PHYSICAL EXAMINATION: VITAL SIGNS: Stable, afebrile. GENERAL: A somewhat obese female, in no acute distress upon exam. HEENT: Normocephalic and atraumatic. Mucosa moist. NECK: Supple. No lymphadenopathy. LUNGS: Clear in upper [place] with decreased breath sounds in the bases. HEART: Regular rate and rhythm. No murmurs, rubs, or gallops. ABDOMEN: Soft, benign and nondistended. Positive bowel sounds times 4. EXTREMITIES: No clubbing, cyanosis or edema. She does have some notable well-demarcated rash to her lower extremities. NEUROLOGIC: She does have proximal muscle strength decreased. LABORATORY DATA: White count 4.6, H&H 9.3 and 31.9 and platelet count is 290. Sodium 137, potassium 4.6, BUN and creatinine of 21 and 1.1, and blood sugar is noted to be 233. ASSESSMENT: This is a 74-year-old female patient admitted to rehab with a working diagnosis of disuse myopathy with muscle wasting and atrophy. The patient has potential to make improvement. We instituted the following multidisciplinary therapies include, but not limited to physical, occupational, respiratory, speech, nutritional services, prosthetics and orthotics. Given her complex medical condition and risk for more complications, rehabilitation services cannot be provided at a low level of care such a skilled nurse facility. PLAN: 1. Admit to [facility] for inpatient therapy to include the following disciplines; A. Physical therapy to improve gait, all transfer skills and bed mobility to a modified independent level. B. Occupational therapy to improve activities of daily living. C. Case management to assist with discharge planning and placement options. D. Nutrition to assist with nutritional needs. E. Rehabilitation nursing to assist in monitoring the patient's underlying medical conditions and to assist with any type of bowel or bladder management. 2. The patient's current medication and medical care will be continued. 3. The patient will be placed on standard fall precautions. 4. The patient's estimated length of stay is approximately 7-10 days. 5. We will discuss this patient during care team staff meeting this week. Continue with appropriate home medications and I will see again in the a.m. TRANSINT:[id number] Voice Confirmation ID: [id number] DOCUMENT ID: [id number] SANDRA notes whether there has been none or any medical/functional change since admission: - No change since preadmission screen. SANDRA attests patient continues to be appropriate for IRF: - Continues to be appropriate. HISTORY AND PHYSICAL [id number] TAMIKA MERINO,ORAL WILLIS MD at 1412 CC: [id number] DICTATION DATE: 01/10/20828 QUALITY INTERN: 01/10/20 0934 ADM IN [place] [id number] [place] [id number]
== END 2020-01-18 15:49 | disposition home health service (06) | DRG 91 ==
LOC: D.REHAB 17:20
PROVIDERS: ADMIT Emergency Medicine; ATTEND Emergency Medicine
DX: G72.89 Other specified myopathies (principal); J18.9 Pneumonia, unspecified organism; L03.116 Cellulitis of left lower limb; L03.115 Cellulitis of right lower limb; D50.9 Iron deficiency anemia, unspecified; M62.50 Muscle wasting and atrophy, not elsewhere classified, unspecified site; E11.65 Type 2 diabetes mellitus with hyperglycemia; I50.9 Heart failure, unspecified; H26.9 Unspecified cataract; E03.9 Hypothyroidism, unspecified; E78.5 Hyperlipidemia, unspecified